=== PATIENT | female | born 1945 | race Caucasian/White ===

== ENCOUNTER → 2017-08-29 | Day surgery (SDC) | payer MEDICARE, BC ==
[2017-08-23 14:02] LABS: BASOPHILS # (AUTO) 0.1 (0.0-0.1); BASOPHILS % 0.9 % (0.0-1.0); EOSINOPHILS # (AUTO) 0.2 (0.0-0.4); EOSINOPHILS % 1.7 % (0.0-6.0); HEMATOCRIT 37.4 % (34.2-44.1); HEMOGLOBIN 11.3 g/dL (12.0-16.0); LYMPHOCYTES # (AUTO) 3.8 (1.0-3.2); LYMPHOCYTES % 39.3 % (18.0-39.1); MEAN CORPUSCULAR HEMOGLOBIN 23.2 pg (28-32); MEAN CORPUSCULAR HGB CONC 30.2 g/dL (31-35); MEAN CORPUSCULAR VOLUME 76.8 fL (81-99); MONOCYTES # (AUTO) 0.5 (0.2-0.8); MONOCYTES % 5.6 % (4.4-11.3); NEUTROPHILS % 52.2 % (38.7-80.0); PLATELET COUNT 268 x10e3/uL (140-360); RED BLOOD COUNT 4.87 x10e6/uL (3.6-5.1); RED CELL DISTRIBUTION WIDTH 18.8 % (11.7-14.4)
[~2017-08-29] MED LIST: CRESTOR10 MG PO; FENTANYL CITRATE/PF 100MCG/2 ML INJ ONE; HYOSCYAMINE PO; HYOSCYAMINE SULFATE 0.5 MG/ML AMP ONE; LEXAPRO10 MG PO; METFORMIN HCL500 MG PO; MIDAZOLAM HCL 2 MG/2 ML VIAL ONE; NEXIUM PO; NORCO 10-325 T1 EACH PO; PANTOPRAZOLE PO; PROPOFOL IV EMULSION 10 MG/ML 50 ML VIAL ONE; TIZANIDINE HCL4 M1 PO; TRAZODONE HCL50 MG PO; Z.0.CYMBALTA60 MG PO; Z.0.GLIMEPIRIDE1 MG PO; Z.0.LORAZEPAM1 MG PO; Z.0.ZOLPIDEM TARTRA1 PO; ZOFRAN PO; ZOLOFT50 MG PO; plavix
--- OUTSIDE RECORDS SUMMARY | 2017-08-29 06:01 | XMS REPORT ---
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 Allergies, Adverse Reactions, Alerts This patient has no known allergies or adverse reactions. Medications This patient has no known medications. Results Test Description Test Time Test Comments Text Results Atomic Results Result Comments MAMMOGRAPHY DIGITAL DX UNI LT [place] [address] Patient Name: KARLA VANN MR #: [id number] : 1945 Age/Sex: 72/F Req #: [id number] Adm Physician: Ordered by: CESAR SMALLWOOD MD Report #: [id number] Location: MAMMO Room/Bed: Procedure: [id number] MG/MAMMOGRAPHY DIGITAL DX UNI LT Exam Date: 03/27/17 Exam Time: 0943 REPORT STATUS: Signed # [id number] - MGDXLT #UNILATERAL LEFT DIGITAL DIAGNOSTIC MAMMOGRAM WITH SPOT COMPRESSION: 03/27/2017 Comparison is made to exams dated: 02/19/2017 mammogram, 02/09/2014 ultrasound, 02/09/2014 mammogram and 09/18/2012 mammogram - [facility]. Current study contains 3 films. The tissue of the left breast is predominantly fatty. Small nodule in question in the upper outer aspect of the left breast persists with focal spot compression. Additional evaluation with focused ultrasound is suggested. IMPRESSION: INCOMPLETE: NEEDS ADDITIONAL IMAGING EVALUATION Small nodule in the upper outer aspect of the left breast. Focused ultrasound is recommended and will be performed today. Matheus Saavedra Jr., D.O. cw/:03/27/2017 13:42:21 Director Of Materials: Reina GARCIA(R)(M) , [facility] Mammogram BI-RADS: 0 Indeterminate Dictated By: MATHEUS SAAVEDRA DO 1342 Transcribed By: VANESSA on 03/27/17 1342 COPY TO: CESAR SMALLWOOD MD US BREAST LIMITED LEFT [place] [address] Patient Name: KARLA VANN MR #: [id number] : 1945 Age/Sex: 72/F Req #: [id number] Adm Physician: Ordered by: CESAR SMALLWOOD MD Report #: [id number] Location: MAMMO Room/Bed: Procedure: [id number] US/US BREAST LIMITED LEFT Exam Date: Exam Time: REPORT STATUS: Signed #[id number] - USBRELIMLT ULTRASOUND OF THE LEFT BREAST : 03/27/2017 Comparison is made to exams dated: 03/27/2017 mammogram and 02/19/2017 mammogram - [facility]. Color flow and real-time ultrasound were performed on the left breast with scanning from 12 o'clock to 4 o'clock. -At 12 o 'clock 2 cm from the nipple there is a 4 mm benign cyst -At 1 o'clock 5 cm from the nipple there is a 3 mm benign cyst -At 2 o'clock 3 cm from the nipple there is a 7 mm benign cyst IMPRESSION: BENIGN Multiple benign simple cysts. There is no sonographic evidence of malignancy. A 1 year screening mammogram is recommended. Matheus Saavedra Jr., D.O. cw/:03/27/2017 14:11:55 Director Of Materials: LEIF GAONA RT, [facility] letter sent: Normal Exam Ultrasound BI-RADS: 2 Benign Dictated By: MATHEUS SAAVEDRA DO 141 Transcribed By: VANESSA on 03/27/17 141 COPY TO: CESAR SMALLWOOD MD MAMMOGRAPHY DIGITAL SCR BILAT [place] [address] Patient Name: KARLA VANN MR #: [id number] : 1945 Age/Sex: 72/F Req #: [id number] [facility] Physician: Ordered by: CESAR SMALLWOOD MD Report #: [id number] Location: MAMMO Room/Bed: Procedure: [id number] MG/MAMMOGRAPHY DIGITAL SCR BILAT Exam Date: 02/19/17 Exam Time: 1306 REPORT STATUS: Signed # [id number] - MGSCRBIL #BILATERAL DIGITAL SCREENING MAMMOGRAM WITH CAD: 02/19 CLINICAL: Routine screening. Comparison is made to exams dated: 02/09/2014 mammogram, 09/18/2012 mammogram and 07/18/2011 mammogram - [facility]. Current study contains 6 films. The tissue of both breasts is predominantly fatty. Current study was also evaluated with a Computer Aided Detection (CAD) system. There is a possible oval mass in the left breast at 1 o'clock anterior depth. This density appears new compared to prior studies and is highlighted by CAD analysis on the CC view. There are scattered calcifications in both breasts. No other significant masses, calcifications, or other findings are seen in either breast. IMPRESSION: INCOMPLETE: NEEDS ADDITIONAL IMAGING EVALUATION The possible oval mass in the left breast is indeterminate. Additional views with possible ultrasound are recommended. The patient will be contacted by the Mammography Department to schedule this appointment. Matheus Saavedra Jr., D.O. cw/:03/06/2017 07:37:08 Director Of Materials: Reina GARCIA(Yogesh)(Vicky), [facility] letter sent: Additional Imaging Needed Mammogram BI-RADS: 0 Indeterminate Dictated By: MATHEUS SAAVEDRA DO 6 Transcribed By: VANESSA on 03/06/17736 COPY TO: CESAR SMALLWOOD MD
--- NOTE | 2017-08-29 10:05 | Operative Report ---
DATE OF PROCEDURE: August 29, 2017 REFERRING PHYSICIAN: Dr. Smallwood PROCEDURES PERFORMED 1. Esophagogastroduodenoscopy with biopsies and pyloric channel dilatation. 2. Colonoscopy note. INDICATIONS FOR EGD: Dyspepsia. INDICATIONS FOR COLONOSCOPY: Colorectal cancer screening. Personal history of colon polyps. MEDICATION: Patient was done under MAC. Please see anesthesiologist's note. PROCEDURE: With the patient in the left lateral decubitus position, the flexible fiberoptic Olympus gastroscope was introduced into the esophagus under direct visualization without any difficulty. There was some patchy erythema noted in the distal esophagus. The scope was then advanced with ease into the stomach, traversing a small sliding hiatal hernia. Mucosa overlying the antrum and the body revealed some patchy erythema and mild to moderate edema, and biopsies were obtained and sent to stain for H. pylori. The pyloric channel was strictured and could not be traversed with the scope. It was then dilated to a size 20 mm per TTS balloon dilators. The pylorus was then traversed with ease, and the scope was advanced all the way to the 2nd portion of the duodenum. The scope was then withdrawn slowly. Mucosa overlying the proximal 2nd portion and the duodenal bulb appeared to be within normal limits. The scope was then withdrawn back into the stomach and retroflexed. Mucosa overlying the fundus and cardia appeared to be within normal limits. The scope was then straightened out. The stomach was decompressed. The scope was subsequently withdrawn. Patient tolerated the procedure well. IMPRESSION 1. Mild distal esophagitis. 2. Small sliding hiatal hernia. 3. Gastritis, biopsied. Biopsies sent to stain for H. pylori. 4. Pyloric channel stricture dilated to size 20 mm per TTS balloon dilators. PLAN: Follow up histology. Initiate Protonix 40 mg 1 p.o. q.a.m. a.c. The patient was then turned around. After adequate lubrication of the anal canal, a flexible fiberoptic Olympus colonoscope was inserted into the rectum with ease and advanced all the way to the cecum. Prep overall was suboptimal with retained stools in the colon. The scope was then withdrawn slowly. Whatever was visualized of the mucosa overlying the cecum, ascending, transverse, descending, sigmoid and rectum grossly appeared to be within normal limits. There was some diverticular disease noted in the descending and sigmoid colon. The scope was then retroflexed into the distal rectum, and small internal hemorrhoids were noted along with some hypertrophic anal papillae. The scope was then straightened out. It was subsequently withdrawn. Patient tolerated the procedure well. IMPRESSION 1. Suboptimal prep. 2. Diverticulosis. 3. Internal hemorrhoids, none actively bleeding. 4. Hypertrophic anal papillae. PLAN: Initiate high-fiber, low-fat diet. Initiate high-fiber supplement. Patient will need a followup colonoscopy in 3 years. Job#: [id number] cc:CESAR SMALLWOOD M.D.
== END | disposition home or self-care (01) ==
LOC: OR 05:58
PROVIDERS: ATTEND Internal Medicine Gastroenterology
DX: Z12.11 Encounter for screening for malignant neoplasm of colon (principal); K29.70 Gastritis, unspecified, without bleeding; K31.1 Adult hypertrophic pyloric stenosis; K20.9 Esophagitis, unspecified; K21.9 Gastro-esophageal reflux disease without esophagitis; K44.9 Diaphragmatic hernia without obstruction or gangrene; K57.30 Diverticulosis of large intestine without perforation or abscess without bleeding; K64.8 Other hemorrhoids; K62.89 Other specified diseases of anus and rectum; E11.9 Type 2 diabetes mellitus without complications; R03.0 Elevated blood-pressure reading, without diagnosis of hypertension; F32.9 Major depressive disorder, single episode, unspecified; F41.9 Anxiety disorder, unspecified; Z01.810 Encounter for preprocedural cardiovascular examination; Z01.812 Encounter for preprocedural laboratory examination; Z68.27 Body mass index [BMI] 27.0-27.9, adult; Z96.659 Presence of unspecified artificial knee joint; Z95.2 Presence of prosthetic heart valve
CPT/HCPCS: 43239; 43245; G0121; 36415; 43450; 45378; 82948; 85025; 88305; 88312; 93005; J1980; J2250

== ENCOUNTER → 2018-08-06 | Outpatient (CLI) | payer MEDICARE, BC ==
[~2018-08-06] MED LIST changes: +DICYCLOMINE HCL10 MG PO; -FENTANYL CITRATE/PF 100MCG/2 ML INJ ONE; +GLIMEPIRIDE2 MG PO; +HEMOCYTE PLUS1 EACH PO; -HYOSCYAMINE SULFATE 0.5 MG/ML AMP ONE; +METOPROLOL SUCC25 MG PO; -MIDAZOLAM HCL 2 MG/2 ML VIAL ONE; +PANTOPRAZOLE SO40 MG PO; -PROPOFOL IV EMULSION 10 MG/ML 50 ML VIAL ONE; +TRADJENTA5 MG PO
[2018-08-06 12:28] LABS: BASOPHILS % 0.3 % (0.0-1.0); HEMATOCRIT 30.8 % (34.2-44.1); HEMOGLOBIN 9.2 g/dL (12.0-16.0); LYMPHOCYTES # (AUTO) 1.9 (1.0-3.2); LYMPHOCYTES % 19.8 % (18.0-39.1); MEAN CORPUSCULAR HEMOGLOBIN 22.9 pg (28-32); MEAN CORPUSCULAR HGB CONC 29.9 g/dL (31-35); MEAN CORPUSCULAR VOLUME 76.6 fL (81-99); MONOCYTES # (AUTO) 0.4 (0.2-0.8); NEUTROPHILS # (AUTO) 7.3 (2.1-6.9); NEUTROPHILS % 75.2 % (38.7-80.0); PLATELET COUNT 199 x10e3/uL (140-360); RED BLOOD COUNT 4.02 x10e6/uL (3.6-5.1); RED CELL DISTRIBUTION WIDTH 20.1 % (11.7-14.4)
[2018-08-06 12:43] LABS: INR 0.88; PROTHROMBIN TIME 12.4 seconds (11.9-14.5)
[2018-08-06 13:11] LABS: FERRITIN 28.41 ng/mL (4.63-204.00)
--- OUTSIDE RECORDS SUMMARY | 2018-08-12 10:16 | XMS REPORT | Summary of Care ---
Author Author [facility] Organization [facility] Address Unknown Phone Unavailable Encounter MANDI Juarez(DEBBY) [id number] Date(s): 12/29/14 - 12/29/14 [facility] [address] [facility], [address] Discharge Disposition: Home Attending Physician: Ivet Newman MD Referring Physician: Ivet Newman MD Vital Signs Most recent to 1 oldest [Reference Range]: Height 162.56 cm (12/29/14 3:03 PM) Most recent to 1 oldest [Reference Range]: Temperature Oral 98.1 DegF [96.4-99.1 DegF] (12/29/14 3:03 PM) Most recent to 1 oldest [Reference Range]: Blood Pressure 131/78 mmHg [90-140/60-90 mmHg] (12/29/14 3:03 PM) Most recent to 1 oldest [Reference Range]: Respiratory Rate 18 BRMIN [14-20 BRMIN] (12/29/14 3:03 PM) Most recent to 1 oldest [Reference Range]: Peripheral Pulse 98 bpm Rate [60-100 bpm] (12/29/14 3:03 PM) Most recent to 1 oldest [Reference Range]: Weight 81 kg (12/29/14 3:03 PM) Most recent to 1 oldest [Reference Range]: Body Mass Index 30.65 m2 (12/29/14 3:03 PM) Problem List Condition Effective Dates Status Health Status Informant Angina(Confirmed) Resolved Aortic Active stenosis(Confirmed) CHF - Congestive Active heart failure(Confirmed) DM (diabetes Active mellitus)(Confirmed) Pulmonary Active HTN(Confirmed) Allergies, Adverse Reactions, Alerts Substance Reaction Severity Status NKDA Active Medications No Known Medications Results No data available for this section Immunizations No data available for this section Procedures Procedure Date Related Diagnosis Body Site Percutaneous transfemoral insertion of aortic 12/05/13 valve using fluoroscopic guidance Appendectomy Bilateral replacement of knee joints Cholecystectomy Sling procedure of bladder neck Vaginal hysterectomy Social History Social History Type Response Smoking Status Never smoker; Exposure to Tobacco Smoke None; Cigarette Smoking Last 365 Days No; Reg Smoking Cessation Counseling No Assessment and Plan No data available for this section
--- OUTSIDE RECORDS SUMMARY | 2018-08-12 10:16 | XMS REPORT | Summary of Care ---
Author Organization Unknown Address Unknown Phone Unavailable Encounter HQ Larry(DEBBY) [id number] Date(s): 12/29/13 - 12/29/13 [facility] Outpatient Imaging [address] Discharge Disposition: Home Physician Attending: Ivet Newman MD Reason for Visit 424.1 - AORTIC VALVE DI Problem List Condition Effective Dates Status Health Status Informant Angina(Confirmed) Resolved Aortic Active stenosis(Confirmed) CHF - Congestive Active heart failure(Confirmed) DM (diabetes Active mellitus)(Confirmed) Pulmonary Active HTN(Confirmed) Allergies, Adverse Reactions, Alerts Substance Reaction Severity Status NKDA Active Medications No data available for this section Medications Administered During Your Visit No data available for this section Immunizations No data available for this section Social History Social History Type Response Smoking Status Never smoker, Exposure to Tobacco Smoke None, Cigarette Smoking Last 365 Days No, Reg Smoking Cessation Counseling No
--- OUTSIDE RECORDS SUMMARY | 2018-08-12 10:16 | XMS REPORT | Summary of Care ---
Author Organization Unknown Address Unknown Phone Unavailable Encounter HQ Larry(DEBBY) [id number] Date(s): 12/04/13 - 12/04/13 [facility] Outpatient Imaging [address] Discharge Disposition: Home Physician Attending: Fernando Santos MD Reason for Visit 786.05 - SHORTNESS OF BR Problem List Condition Effective Dates Status Health [...]
--- OUTSIDE RECORDS SUMMARY | 2018-08-12 10:16 | XMS REPORT | Summary of Care ---
Author Organization Unknown Address Unknown Phone Unavailable Encounter HQ Larry(DEBBY) [id number] Date(s): 12/29/13 - 12/29/[address] Discharge Disposition: Home Physician Attending: Ivet Newman MD Physician_Referring: Ivet Newman MD Reason for Visit FOLLWO UP Vital Signs Most recent to 1 oldest [Reference Range]: Height 162.56 cm (12/29/13 2:24 PM) Temperature Oral 97.3 DegF [96.4-99.1 DegF] (12/29/13 2:24 PM) Systolic Blood 89 mmHg Pressure [90-140 *LOW* mmHg] (12/29/13 2:24 PM) Diastolic Blood 59 mmHg Pressure [60-90 *LOW* mmHg] (12/29/13 2:24 PM) Respiratory Rate 16 BRMIN [14-20 BRMIN] (12/29/13 2:24 PM) Peripheral Pulse 77 bpm Rate [60-100 bpm] (12/29/13 2:24 PM) Weight 75.455 kg (12/29/13 2:24 PM) Body Mass Index 28.55 m2 (12/29/13 2:24 PM) Problem List Condition Effective Dates Status [...]
--- OUTSIDE RECORDS SUMMARY | 2018-08-12 10:16 | XMS REPORT | Summary of Care ---
Author Organization Unknown Address Unknown Phone Unavailable Encounter MANDI Juarez(DEBBY) [id number] Date(s): 06/08/14 - 06/08/[address] Discharge Disposition: Home Physician Attending: Ivet Newman MD Physician_Referring: Ivet Newman MD Reason for Visit 6 MONTH FOLLOW UP Vital Signs Most recent to 1 oldest [Reference Range]: Height 162.56 cm (06/08/14 1:37 PM) Temperature Oral 98 DegF [96.4-99.1 DegF] (06/08/14 1:37 PM) Systolic Blood 159 mmHg Pressure [90-140 *HI* mmHg] (06/08/14 1:37 PM) Diastolic Blood 89 mmHg Pressure [60-90 (06/08/14 1:37 PM) mmHg] Respiratory Rate 16 BRMIN [14-20 BRMIN] (06/08/14 1:37 PM) Peripheral Pulse 70 bpm Rate [60-100 bpm] (06/08/14 1:37 PM) Weight 75.142 kg (06/08/14 1:37 PM) Body Mass Index 28.44 m2 (06/08/14 1:37 PM) Problem List Condition Effective Dates Status Health Status Informant Angina(Confirmed) Resolved Aortic Active stenosis(Confirmed) CHF - Congestive Active heart failure(Confirmed) DM (diabetes Active mellitus)(Confirmed) Pulmonary Active HTN(Confirmed) Allergies, Adverse Reactions, Alerts Substance Reaction Severity Status NKDA Active Medications Butrans System 15 mcg/hr transdermal film, extended release 1 patch, 0 Refill(s) Start Date: 06/08/14 Status: Ordered Crestor 10 mg oral tablet 10 mg=1 tab, PO, Bedtime, # 90 tab, 0 Refill(s) Start Date: 06/08/14 Status: Ordered escitalopram 10 mg oral tablet 10 mg=1 tab, PO, Daily, # 30 tab, 0 Refill(s) Start Date: 06/08/14 Status: Ordered metoclopramide 5 mg oral tablet 5 mg=1 tab, 0 Refill(s) Start Date: 06/08/14 Status: Ordered pantoprazole 40 mg oral enteric coated tablet 40 mg=1 tab, PO, Daily, # 30 tab, 0 Refill(s) Start Date: 06/08/14 Status: Ordered tizanidine 0 Refill(s) Start Date: 06/08/14 Status: Ordered Medications Administered During Your Visit No data available for this section Immunizations No data available for this section Social History Social History Type Response Smoking Status Never smoker, Exposure to Tobacco Smoke None, Cigarette Smoking Last 365 Days No, Reg Smoking Cessation Counseling No
--- OUTSIDE RECORDS SUMMARY | 2018-08-12 10:16 | XMS REPORT | Continuity of Care Document ---
Author Author Sadi kasper Organization Interface Address Unknown Phone Unavailable Problems Problem Status Onset Date Classification Date Reported Comments Source FOLLOW UP FROM DR MORALES Active 07/19/2018 [facility] 1 YEAR FOLLOW UP Active 12/20/2017 [facility] FOLLOW UP Active 01/05/2017 [facility] 424.1 - AORTIC VALVE DI Active 12/29/2014 RASHAD Kasper 6 MONTH FOLLOW UP Active 12/29/2013 [facility] FOLLWO UP Active 12/26/2013 [facility] HOSPITAL FOLLOW UP Active 12/08/2013 [facility] AORTIC STENOSIS, SOB Active 11/27/2013 [facility] PRE ADMIT/GEN/TAVR CASE/3D DIOR/DX: AORTI Active 11/27/2013 [facility] AVD, DM, PULMONARY HTN, CHEST PAIN*INCLU Active 10/07/2013 [facility] TAVR CONSULT Active 10/06/2013 [facility] AVB,SOB,CLP,PULM HTN Active 09/05/2013 [facility] INTIAL CONSULT Active 09/03/2013 [facility] Angina [facility]olved [facility]26[facility] A[facility] - Congestive heart failure Active [facility]/26[facility] DM (<span ID="[id number]">Confirmed</span>) Active Problem [facility]/26[facility] Pul[facility]N [facility]/26[facility] Polymyalgia rheumatica Active Problem 07/27/2018 Reji Landeros Osteoarthritis Active Diagnosis 07/27/2018 Reji Landeros Vitamin D deficiency Active Problem 07/27/2018 Reji Landeros Age-related osteoporosis with current pathological fracture, initial encounter Active Problem 02/13/2018 Reji Landeros Age related osteoporosis Active Problem 07/27/2018 Reji Landeros Fall from chair, initial encounter Active Problem 07/27/2018 Reji Landeros Other specified arthritis, multiple sites Active Problem 07/27/2018 Reji Landeros Chronic prescription opiate use Active Diagnosis 07/27/2018 Reji Landeros Special screening for osteoporosis Active Problem 07/27/2018 Reji Landeros Acute pain of left shoulder Active Diagnosis 11/07/2016 Reji Landeros Flu vaccine need Active Diagnosis 03/30/2017 Reji Landeros Primary insomnia Active Diagnosis 07/27/2018 Reji Landeros Pain of left leg Active Diagnosis 12/01/2017 Reji Landeros Pain in right leg Active Diagnosis 12/01/2017 Reji Landeros Other group home drug therapy Active Diagnosis 02/13/2018 Reji Landeros AORTIC VALVE DISORDER Active [facility] SHORTNESS OF BREATH Active [facility] CHF NOS Active [facility] ROUTINE MEDICAL EXAM Active [facility] CHEST PAIN NOS Active [facility] ENCNTR FOR GENERAL ADULT MEDICAL EXAM W/ Active [facility] Medications Medication Details Route Status Patient Instructions Ordering Provider Order Date Source Hydrocodone-Acetaminophen 1 tablet as needed Orally Active 10- 325 MG Orally every 6 hrs [place] 07/25/2018 Reji Landeros Temazepam 1 capsule at bedtime as needed Orally Active 15 MG Orally qhs prn for sleep [place] 07/25/2018 Reji Landeros PredniSONE 1 tablet as needed Orally Active 5 MG Orally Once a day [place] 07/25/2018 Reji Landeros Lyrica 1 capsule Orally Active 75 MG Orally Once a day [place] 07/25/2018 Reji Landeros 24 HR Metoprolol Tartrate 25 MG Extended Release Tablet [Toprol] 25 mg=1 tab, PO, Daily, # 30 tab, 6 Refill(s), Pharmacy: [facility] [address] Active 07/23/2018 [facility] Tizanidine HCl 1 tablet as needed Orally Active 4 MG Orally bid [place] 07/01/2018 Reji Landeros Lyrica 1 capsule Orally Active 75 MG Orally Once a day [place] 04/25/2018 Reji Landeros Temazepam 1 capsule at bedtime as needed Orally Active 15 MG Orally qhs prn for sleep [place] 02/22/2018 Reji Landeros Tizanidine HCl 1 tablet as needed Orally Active 4 MG Orally bid [place] 12/23/2017 Reji Landeros PredniSONE 1 tablet as needed Orally Active 5 MG Orally Once a day [place] 12/23/2017 Reji Landeros Tizanidine HCl 1 tablet as needed Orally Active 4 MG Orally bid [place] 12/20/2017 Reji Landeros Lyrica 1 capsule Orally Active 75 MG Orally Once a day [place] 12/20/2017 Reji Landeros Hydrocodone-Acetaminophen 1 tablet as needed Orally Active 10- 325 MG Orally every 6 hrs [place] 11/21/2017 Reji Landeros Lyrica 1 capsule Orally Active 50 MG Orally QHS [place] 11/20/2017 Reji Landeros Vitamin D (Ergocalciferol) 1 capsule Orally Active 08567 UNIT Orally once a week [place] 10/22/2017 Re[facility] L[facility]os Tizanidine HCl 1 tablet as needed Orally Active 4 MG Orally bid [place] 10/21/2017 Reji Landeros Hydrocodone-Acetaminophen 1 tablet as needed Orally Active 10- 325 MG Orally every 6 hrs [place] 10/21/2017 Reji Landeros Medrol Dose Eric as directed Orally Active 4mg Orally once a day [place] 06/25/2017 Reji Landeros Vitamin D (Ergocalciferol) 1 capsule Orally Active 36135 UNIT Orally once a week [place] 06/08/2017 Reji Landeros Hydrocodone-Acetaminophen 1 tablet as needed Orally Active 10- 325 MG Orally every 6 hrs [place] 05/25/2017 Reji Landeros Prolia as directed Subcutaneous Active 60 MG/ML Subcutaneous every 6 months [place] 03/26/2017 Reji Landeros Vitamin D (Ergocalciferol) 1 capsule Orally Active 47621 UNIT Orally once a week [place] 02/08/2017 Reji Landeros escitalopram 20 mg oral tablet 20 mg=1 tab, PO, Daily, 0 Refill(s) Active 12/28/2015 [facility] tizanidine 0 Refill(s) Active 06/08/2014 [facility] escitalopram 10 mg oral tablet 10 mg=1 tab, PO, Daily, # 30 tab, 0 Refill(s) Active 06/08/2014 [facility] pantoprazole 40 mg oral enteric coated tablet 40 mg=1 tab, PO, Daily, # 30 tab, 0 Refill(s) Active 06/08/2014 [facility] Metoclopramide 5 MG Oral Tablet 5 mg=1 tab, 0 Refill(s) Active 06/08/2014 [facility] Rosuvastatin calcium 10 MG Oral Tablet [Crestor] 10 mg=1 tab, PO, Bedtime, # 90 tab, 0 Refill(s) Active 06/08/2014 [facility] 168 HR Buprenorphine 0.015 MG/HR Transdermal Patch [BuTrans] 1 patch, 0 Refill(s) Active 06/08/2014 [facility] LORazepam 1 mg oral tablet 1 mg=1 tab, PO, BID, Anxiety, PRN, # 20 tab, 0 Refill(s)Special Instructions: PRN Active 12/15/2013 [facility] Zolpidem tartrate 5 MG Oral Tablet [Ambien] 5 mg=1 tab, PO, Bedtime, for sleep, PRN sleep, 0 Refill(s)Special Instructions: PRN sleep Active 12/15/2013 [facility] lisinopril 5 mg oral tablet 5 mg=1 tab, PO, Daily, # 30 tab, 3 Refill(s) Active 12/07/2013 [facility] clopidogrel 75 mg oral tablet 75 mg=1 tab, PO, Daily, # 30 tab, 6 Refill(s) Active 12/07/2013 [facility] Aspirin 81 MG Enteric Coated Tablet 81 mg=1 tab, PO, Daily, # 100 tab, 3 Refill(s) Active 12/07/2013 [facility] tramadol hydrochloride 50 MG Oral Tablet 50 mg=1 tab, PO, Q6H, as needed for pain, # 30 tab, 0 Refill(s) Active 12/07/2013 [facility] Lisinopril 5 mg, 1 tab, Route: PO, Drug form: TAB, Daily, Dosing Weight 80.455, kg, Start date: 12/07/13 9:00:00, Duration: 30 day, Stop date: 01/05/14 9:00:00Notes: (Same as: Prinivil, Zestril) Inactive 12/07/2013 [facility] clopidogrel 75 mg, 1 tab, Route: PO, Drug form: TAB, Daily, Dosing Weight 80.455, kg, Start date: 12/06/13 9:00:00, Duration: 30 day, Stop date: 01/04/14 9:00:00Notes: (Same As: Plavix) No Longer Active 12/06/2013 [facility] pantoprazole 40 mg, 1 tab, Route: PO, Drug form: ECTAB, Daily, Dosing Weight 80.455, kg, Start date: 12/06/13 9:00:00, Duration: 30 day, Stop date: 01/04/14 9:00:00Notes: Tablet should not be chewed or crushed. ( Same as: Protonix) No Longer Active 12/06/2013 [facility] Aspirin 81 MG Enteric Coated Tablet 81 mg, 1 tab, Route: PO, Drug form: ECTAB, Daily, Dosing Weight 80.455, kg, Start date: 12/06/13 9:00:00, Duration: 30 day, Stop date: 01/04/14 9:00:00Notes: Do not crush or chew. (Same As: Ecotrin) No Longer Active 12/06/2013 [facility] Zoloft 100 mg, 1 tab, Route: PO, Drug form: TAB, Daily, Dosing Weight 80.455, kg, Start date: 12/06/13 9:00:00, Stop date: 01/03/14 21:00:00Notes: (Same as: Zoloft) No Longer Active 12/06/2013 [facility] Acetaminophen 325 MG Oral Tablet 650 mg, 2 tab, Route: PO, Drug form: TAB, Q4H, Dosing Weight 80.455, kg, PRN as needed for pain, Start date: 12/06/13 5:14:00, Duration: 30 day, Stop date: 01/05/14 5:13:00Notes: Do not exceed 4 gm/day. (Same as: Tylenol) No Longer Active 12/06/2013 [facility] Acetaminophen 10 MG/ML Injectable Solution 1,000 mg, 100 mL, Route: IV, Drug form: INJ, ONCE, Dosing Weight 80.455, kg, PRN Pain, For > or=50 kg, Start date: 12/05/13 22:32:00Notes: Infuse over 15 minutes Do not exceed 4gm/day of acetaminophen Inactive 12/06/2013 [facility] heparin, porcine 5,000 unit, Route: SUB-Q, Q12H, Dosing Weight 80.455, kg, Start date: 12/05/13 21:00:00, Duration: 30 day, Stop date: 01/04/14 9:00:00 Inactive 12/06/2013 [facility] Zofran 4 mg, 2 mL, Route: IV, Drug form: INJ, Q4H, Dosing Weight 80.455, kg, PRN Nausea, Start date: 12/05/13 20:10:00, Duration: 30 day, Stop date: 01/04/14 20:09:00Notes: (Same as: Zofran) No Longer Active 12/06/2013 [facility] Zofran 4 mg, 2 mL, Route: IV, Drug form: INJ, Q8H, Dosing Weight 80.455, kg, PRN Nausea, Start date: 12/05/13 17:53:00, Duration: 30 day, Stop date: 01/04/14 17:52:00Notes: (Same as: Zofran) Inactive 12/05/2013 [facility] Fentanyl 25 microgram, Route: IV, QID, Dosing Weight 80.455, kg, Start date: 12/05/13 17:00:00, Duration: 30 day, Stop date: 01/04/14 13:00:00 Inactive 12/05/2013 [facility] tramadol hydrochloride 50 MG Oral Tablet 50 mg, 1 tab, Route: PO, Drug form: TAB, Q6H, Dosing Weight 80.455, kg, PRN as needed for pain, Start date: 12/05/13 16:52:00, Duration: 30 day, Stop date: 01/04/14 16:51:00Notes: Not to exceed 400mg/day. (Same As: Ultram) No Longer Active 12/05/2013 [facility] Potassium Chloride 20 mEq, 15 mL, Route: NJ, Drug form: LIQ, PRN, Dosing Weight 80.455, kg, PRN Abnormal Lab Result, Start date: 12/05/13 13:29:00, Duration: 30 day, Stop date: 01/04/14 13:28:00, FOR ICU USE ONLYSpecial Instructions: FOR ICU USE ONLYNotes: (Same as: Potassium Chloride) No Longer Active 12/05/2013 [facility] Sodium Phosphate, Monobasic 30 mmol, 10 mL, Route: IVPB, PRN, Dosing Weight 80.455, kg, PRN Abnormal Lab Result, Start date: 12/05/13 13:29:00, Duration: 30 day, Stop date: 01/04/14 13:28:00, FOR ICU USE ONLYSpecial Instructions: FOR ICU USE ONLY No Longer Active 12/05/2013 [facility] Calcium Carbonate 500 MG Chewable Tablet 500 mg, 1 tab, Route: PO, Drug form: CHEWTAB, PRN, Dosing Weight 80.455, kg, PRN Abnormal Lab Result, FOR ICU USE ONLY, Start date: 12/05/13 13:29:00, Duration: 30 day, Stop date: 01/04/14 13:28:00Notes: (Same As: Tums) Calcium Carbonate 500 iv=273 mg elemental calcium Dose= mg calcium carbonate ( mg elemental calcium) No Longer Active 12/05/2013 [facility] Magnesium Oxide 800 mg, 2 tab, Route: PO, Drug form: TAB, PRN, Dosing Weight 80.455, kg, PRN Abnormal Lab Result, FOR ICU USE ONLY, Start date: 12/05/13 13:29:00, Duration: 30 day, Stop date: 01/04/14 13:28:00Notes: (Same as: Mag-Ox 400) Magnesium oxide [id number] elemental magnesium Dose=____mg magnesium oxide (___mg elemental magnesium) No Longer Active 12/05/2013 [facility] Magnesium Sulfate 2 gm, 50 mL, Route: IVPB, Drug form: INJ, PRN, Dosing Weight 80.455, kg, PRN Abnormal Lab Result, Start date: 12/05/13 13:29:00, Duration: 30 day, Stop date: 01/04/14 13:28:00, FOR ICU USE ONLYSpecial Instructions: FOR ICU USE ONLY No Longer Active 12/05/2013 [facility] Calcium Gluconate 1 gm, 10 mL, Route: IVPB, PRN, Dosing Weight 80.455, kg, PRN Abnormal Lab Result, Start date: 12/05/13 13:29:00, Duration: 30 day, Stop date: 01/04/14 13:28:00, FOR ICU USE ONLYSpecial Instructions: FOR ICU USE ONLY No Longer Active 12/05/2013 [facility] Phosphorus / Potassium 30 mmol, 10 mL, Route: IVPB, PRN, Dosing Weight 80.455, kg, PRN Abnormal Lab Result, Start date: 12/05/13 13:29:00, Duration: 30 day, Stop date: 01/04/14 13:28:00, FOR ICU USE ONLYSpecial Instructions: FOR ICU USE ONLYNotes: (Same as: K Phosphate.) 1 mMol phoshate has 1.47 mEq potassium Infuse over 4 hours No Longer Active 12/05/2013 [facility] Neutra-Phos 2 pkt, Route: PO, Drug Form: PDR/REC, Dosing Weight 80.455, kg, PRN, PRN Abnormal Lab Result, FOR ICU USE ONLY, Start date: 12/05/13 13:29:00, Duration: 30 day, Stop date: 01/04/14 13:28:00Notes: (Same as: Neutra-Phos) Each 1.25 gm pkt has 250mg phosphorous. Mix w/2.5oz water and stir. No Longer Active 12/05/2013 [facility] Insulin, Regular, Pork 5 unit, 0.05 mL, Route: SUB-Q, Drug form: SOLN, TID-Before Meals, Dosing Weight 80.455, kg, PRN Blood Glucose Results, Start date: 12/05/13 13:29:00, Duration: 30 day, Stop date: 01/04/14 13:28:00Notes: (Same as: Humulin R) Roll in palms of hands gently; Do not shake vigorously. "single patient use only" (Restricted to patients requiring a dose > 60 units) Stable for 28 days at room temperature Expires in days from Date No Longer Active 12/05/2013 [facility] Calcium Carbonate 500 MG Chewable Tablet 1,000 mg, 2 tab, Route: PO, Drug form: CHEWTAB, PRN, Dosing Weight 80.455, kg, PRN Abnormal Lab Result, FOR ICU USE ONLY, Start date: 12/05/13 13:06:00, Duration: 30 day, Stop date: 01/04/14 13:05:00Notes: (Same As: Tums) Calcium Carbonate 500 jl=378 mg elemental calcium Dose= mg calcium carbonate ( mg elemental calcium) Inactive 12/05/2013 [facility] Phosphorus / Potassium 15 mmol, 5 mL, Route: IVPB, PRN, Dosing Weight 80.455, kg, PRN Abnormal Lab Result, Start date: 12/05/13 13:06:00, Duration: 30 day, Stop date: 01/04/14 13:05:00, FOR ICU USE ONLYSpecial Instructions: FOR ICU USE ONLYNotes: (Same as: K Phosphate.) 1 mMol phoshate has 1.47 mEq potassium Infuse over 4 hours Inactive 12/05/2013 [facility] Sodium Phosphate, Monobasic 30 mmol, 10 mL, Route: IVPB, PRN, Dosing Weight 80.455, kg, PRN Abnormal Lab Result, Start date: 12/05/13 13:06:00, Duration: 30 day, Stop date: 01/04/14 13:05:00, FOR ICU USE ONLYSpecial Instructions: FOR ICU USE ONLY Inactive 12/05/2013 [facility] Potassium Chloride 20 mEq, 100 mL, Route: IVPB, Drug form: INJ, PRN, Dosing Weight 80.455, kg, PRN Abnormal Lab Result, Via central line, Start date: 12/05/13 13:06:00, Duration: 30 day, Stop date: 01/04/14 13:05:00, F OR ICU USE ONLYSpecial Instructions: FOR ICU USE ONLYNotes: (Same as: KCL) Infuse no faster than 10 mEq/hr if given peripherally. Inactive 12/05/2013 [facility] Neutra-Phos 2 pkt, Route: PO, Drug Form: PDR/REC, Dosing Weight 80.455, kg, PRN, PRN Abnormal Lab Result, FOR ICU USE ONLY, Start date: 12/05/13 13:06:00, Duration: 30 day, Stop date: 01/04/14 13:05:00Notes: (Same as: Neutra-Phos) Each 1.25 gm pkt has 250mg phosphorous. Mix w/2.5oz water and stir. Inactive 12/05/2013 [facility] Magnesium Sulfate 2 gm, 50 mL, Route: IVPB, Drug form: INJ, PRN, Dosing Weight 80.455, kg, PRN Abnormal Lab Result, Start date: 12/05/13 13:06:00, Duration: 30 day, Stop date: 01/04/14 13:05:00, FOR ICU USE ONLYSpecial Instructions: FOR ICU USE ONLY Inactive 12/05/2013 [facility] Magnesium Oxide 800 mg, 2 tab, Route: PO, Drug form: TAB, PRN, Dosing Weight 80.455, kg, PRN Abnormal Lab Result, FOR ICU USE ONLY, Start date: 12/05/13 13:06:00, Duration: 30 day, Stop date: 01/04/14 13:05:00Notes: (Same as: Mag-Ox 400) Magnesium oxide [id number] elemental magnesium Dose=____mg magnesium oxide (___mg elemental magnesium) Inactive 12/05/2013 [facility] Calcium Gluconate 1 gm, 10 mL, Route: IVPB, PRN, Dosing Weight 80.455, kg, PRN Abnormal Lab Result, Start date: 12/05/13 13:06:00, Duration: 30 day, Stop date: 01/04/14 13:05:00, FOR ICU USE ONLYSpecial Instructions: FOR ICU USE ONLY Inactive 12/05/2013 [facility] Hydralazine 10 mg, 0.5 mL, Route: IV, Drug form: INJ, Q6H, Dosing Weight 80.455, kg, PRN Hypertension, Start date: 12/05/13 12:29:00, Duration: 30 day, Stop date: 01/04/14 12:28:00Notes: (Same as: Apresoline) Push over 5 minutes No Longer Active 12/05/2013 [facility] Fentanyl 50 microgram, 1 mL, Route: IV, Drug form: INJ, Q4H, Dosing Weight 80.455, kg, PRN Pain, Start date: 12/05/13 11:50:00, Duration: 30 day, Stop date: 01/04/14 11:49:00Notes: (Same as: Sublimaze) Prese rvative free. No Longer Active 12/05/2013 [facility] Esomeprazole 20 MG Enteric Coated Capsule [Nexium] 20 mg=1 cap, PO, Daily, # 90 cap, 0 Refill(s) Active 12/05/2013 [facility] LORazepam 1 mg oral tablet 1 mg=1 tab, PO, Daily, Anxiety, prn, # 20 tab, 0 Refill(s)Special Instructions: prn Active 09/04/2013 [facility] Zolpidem tartrate 5 MG Oral Tablet [Ambien] 5 mg=1 tab, PO, Bedtime, for sleep, prn, 0 Refill(s)Special Instructions: prn Active 09/04/2013 [facility] Sertraline 100 MG Oral Tablet [Zoloft] 100 mg=1 tab, PO, Daily, # 30 tab, 0 Refill(s) Active 09/04/2013 [facility] fentaNYL 25 mcg/hr transdermal film, extended release 1 patch, TOP, PRN, 0 Refill(s) Active 09/04/2013 [facility] Lorazepam 1 tablet as needed Orally Active 1 MG Orally once a day [place] Reji Landeros Trazodone HCl 1 tablet at bedtime as needed Orally Active 50 MG Orally Once a day [place] Reji Landeros Metformin HCl 1 tablet with meals Orally Active 500 MG Orally Twice a day [place] Reji Landeros Crestor 1 tablet Orally Active 10 MG Orally Once a day [place] Reji Landeros Hydrocodone-Acetaminophen 1 tablet as needed Orally Active 10- 325 MG Orally every 6 hrs [place] Reji Landeros Tizanidine HCl 1 tablet as needed Orally Active 4 MG Orally bid [place] Reji Landeros Escitalopram Oxalate 1 tablet Orally Active 10 MG Orally Once a day [place] Reji Landeros PredniSONE TAKE 2 TABLETS BY MOUTH DAILY NEEDED NA Active 5mg once a day prn [place] Re[facility] Landeros Pantoprazole Sodium 1 tablet Orally Active 40 MG Orally Before each meal and then before bed [place] Reji Landeros Pantoprazole Sodium 1 tablet Orally Active 40 MG Orally Before each meal and then before bed [place] Reji Landeros Metformin HCl 1 tablet with meals Orally Active 500 MG Orally Twice a day [place] Reji Landeros Trazodone HCl 1 tablet at bedtime as needed Orally Active 50 MG Orally Once a day [place] Reji Landeros Lorazepam 1 tablet as needed Orally Active 1 MG Orally once a day [place] Reji Landeros Crestor 1 tablet Orally Active 10 MG Orally Once a day [place] Reji Landeros Escitalopram Oxalate 1 tablet Orally Active 10 MG Orally Once a day [place] Reji Landeros Macrobid 1 capsule with food Orally Active 100 MG Orally every 12 hrs [place] Reji L[facility]os PredniSONE 2 tablets Orally Active 5 MG Orally [facility] Hydrocodone-Acetaminophen 1 tablet as needed Orally Active 10- 325 MG Orally every 6 hrs [place] Reji Landeros Prolia as directed Subcutaneous Active 60 MG/ML Subcutaneous every 6 months [place] Reji Landeros Medrol Dose Eric as directed Orally Active 4mg Orally once a day [facility] PredniSONE 1 tablet as needed Orally Active 5 MG Orally Once a day [facility] Vitamin D (Ergocalciferol) 1 capsule Orally Active 56498 UNIT Orally once a week [facility] Vitamin D (Ergocalciferol) 1 CAPSULE ONCE A WEEK ORALLY 90 DAYS NA Active 20258 UNIT [facility] Bentyl 2 capsules Orally Active 10 MG Orally Four times a day [facility] Rosuvastatin Calcium 1 tablet Orally Active 10 MG Orally Once a day [facility] Lyrica 1 capsule Orally Active 75 MG Orally Once a day [facility] Allergies, Adverse Reactions, Alerts Substance Category Reaction Severity Reaction type Status Date Reported Comments Source N.K.D.A. Adverse Reaction Info Not Available Adverse Reaction Active 07/25/2018 Reji Landeros Immunizations Immunization Date Given Site Status Last Updated Comments Source Flu Vaccine 03/26/2017 completed Reji [facility]os Results Order Name Results Value Reference Range Date Interpretation Comments Source Chest 2 views DX Chest 2 views DX EXAM: XR CHEST 2 VIEWS DATE: 02/05/2018 1:57 PM CDT INDICATION: - Z95.2 Presence of prosthetic heart valve ADDITIONAL INFORMATION: None. COMPARISON: Chest x-ray 12/28/2015. TECHNIQUE: PA and lateral chest radiographs. Number of images: 2 FINDINGS: Lines and tubes and hardware: Prosthetic aortic valve. Lower cervical fixation plates and screws. Lungs and pleura: No pulmonary or pleural based abnormality is identified. There is dilatation of the proximal pulmonary arteries suggesting pulmonary arterial hypertension. There is minimal right basilar atelectasis. No pneumothorax. Heart and mediastinum: The heart size is normal for technique. The mediastinal contours are normal. Bones: No acute bony abnormality is identified. Dextrocurvature of the thoracic spine with mild levocurvature of the lumbar spine. Soft Tissues: Unremarkable. IMPRESSION: 1. No acute cardiopulmonary abnormality seen. 2. Minimal right basilar atelectasis. 3. Line(s) and tube(s) as above. 02/05/2018 - - Read by: Roderick Shane MD Dictated Date/time: 02/05/18 14:43 Electronically Signed by: Roderick Shane MD 02/05/18 14:55 FINAL REPORT RASHAD Bradenann Chest 2 views DX Chest 2 views DX EXAM: XR CHEST 2 VIEWS DATE: 12/28/2015 11:57 AM CDT INDICATION: CHF (congestive heart failure)/DM (diabetes mellitus)/Pulmonary HTN COMPARISON: 12/29/2014 TECHNIQUE: PA and lateral chest radiographs FINDINGS: Mild cardiomegaly with prosthetic aortic valve seen again. Thoracic aortic arch calcifications seen again. Prominence of bilateral isaiah corresponding to pulmonary arterial hypertension seen again. Bilateral basal atelectatic opacities seen again. Bones are unchanged. IMPRESSION: No significant interval change. 12/28/2015 - - Read by: Bassam Mata Dictated Date/time: 12/28/15 15:42 Electronically Signed by: Bassam Mata 12/28/15 15:43 FINAL REPORT RASHAD Kasper Chest 2 views DX Chest 2 views DX EXAM: Chest x-ray 2 views INDICATION: Aortic valve disorder COMPARISON: Chest 2 views performed 12/29/2013. TECHNIQUE: PA and lateral radiographs of the chest. FINDINGS: Lungs are symmetrically well expanded with no evidence of confluent consolidation, effusion, or pneumothorax. Cardiomediastinal silhouette is not enlarged. Aortic valvular replacement is noted. Prominence of the central pulmonary arteries suggestive of pulmonary hypertension, unchanged. No acute osseous abnormalities noted. Postsurgical hardware in the lower cervical spine noted. IMPRESSION: See above. 12/29/2014 - - Read by: Cr Peter MD Dictated Date/time: 12/29/14 16:27 Electronically Signed by: Cr Peter MD 12/29/14 16:31 FINAL REPORT RASHAD Kasper Chest 2 views Chest 2 views EXAM: XR CHEST 2 VIEWS DATE: Dec 29, 2013 INDICATION: Aortic Valve Disorder COMPARISON: CT chest September 12, 2013, chest x-ray December 07, 2013 TECHNIQUE: Frontal and lateral chest radiographs DISCUSSION: The lungs are clear. Blunting of the right costophrenic angle may be due to a small pleural effusion. Mild right apical pleural thickening is noted. Mild cardiomegaly is again noted. The aorta is calcified and tortuous. Enlargement of the pulmonary arteries, left worse than right is again noted. Changes of aortic valve replacement are again noted. Postsurgical hardware is noted in the lower cervical spine. S shaped scoliosis of the thoracolumbar spine is noted. Moderate spondylosis of the thoracic spine is seen. IMPRESSION: 1. Mild cardiomegaly. 2. Blunting of the right costophrenic angle may be due to a small pleural effusion. 3. Enlargement of the pulmonary arteries, left worse than right which can be seen with pulmonary HTN or pulmonary stenosis. 4. Changes of aortic valve replacement, stable. 12/29/2013 - - Read by: Carol Grayson MD Dictated Date/time: 12/30/13 08:21 Electronically Signed by: Carol Grayson MD 12/30/13 08:32 FINAL REPORT [facility] Chest 1view Chest 1view PORTABLE CHEST 2013-12-07 14:36:00 COMPARISON: 12/05/2013 CLINICAL INDICATION: Abnormal chest sounds DISCUSSION: Right IJ line has been removed in the interim. No pneumothorax . Question tiny right pleural effusion. Lungs are clear. Cardiac silhouette and mediastinum are unchanged in this status post transcatheter aortic valve replacement. Note again of marked enlargement of central pulmonary arteries. IMPRESSION: Removal of right IJ central line. 12/07/2013 - - Read by: Faizan Fuentes MD Dictated Date/time: 12/08/13 08:56 Electronically Signed by: Faizan Fuentes MD 12/08/13 08:57 FINAL REPORT [facility] CARDIAC ENZYMES BNP 116 pg/mL <=100 pg/mL 12/07/2013 8Interpretive Data: Elevated results are in line with increasing severity of congestive heart failure. Minor elevations between 100 and 300 may be seen with Myocardial Ischemia, Sodium retaining drugs, and compensated/treated heart failure. [facility] CHEM PANEL Magnesium Lvl 2.2 mg/dL 1.8 - 2.4 12/07/2013 [facility] CHEM PANEL Phosphorus 3.2 mg/dL 2.5 - 4.5 12/07/2013 [facility] CHEM PANEL eGFR 75 mL/min/1.73m2 12/07/2013 1Result Comment: The eGFR is calculated using the CKD-EPI formula. In most young, healthy individuals the eGFR will be >90 mL/min/1.73m2. The eGFR declines with age. An eGFR of 60-89 may be normal in some populations, particularly the elderly, for whom the CKD-EPI formula has not been extensively validated. Use of the eGFR is not recommended in the following populations: Individuals with unstable creatinine concentrations, including patients and those with serious co-morbid conditions. Patients with extremes in muscle mass or diet. The data above are obtained from the National Kidney Disease Education Program (NKDEP) which additionally recommends that when the eGFR is used in patients with extremes of body mass index for purposes of drug dosing, the eGFR should be multiplied by the estimated BMI. [facility] CHEM PANEL Creatinine Lvl 0.8 mg/dL 0.5 - 1.4 12/07/2013 [facility] CHEM PANEL BUN 8 mg/dL 7 - 22 12/07/2013 [facility] CHEM PANEL Glucose Lvl 161 mg/dL 70 - 99 12/07/2013 5Interpretive Data: Adult reference range values reflect the clinical guidelines of the [employer]. [facility] CHEM PANEL Potassium Lvl 3.9 meq/L 3.5 - 5.1 12/07/2013 [facility] CHEM PANEL Chloride Lvl 102 meq/L 95 - 109 12/07/2013 [facility] CHEM PANEL Sodium Lvl 136 meq/L 135 - 145 12/07/2013 [facility] CHEM PANEL Calcium Lvl 8.7 mg/dL 8.5 - 10.5 12/07/2013 [facility] CHEM PANEL CO2 22 meq/L 24 - 32 12/07/2013 [facility] CHEM PANEL AGAP 15.9 meq/L 10.0 - 20.0 12/07/2013 [facility] HEMATOLOGY PTT 31.9 s 22.9 - 35.8 12/07/2013 14Interpretive Data: Heparin Therapeutic Range: 57 - 92 Seconds [facility] HEMATOLOGY PT 14.6 s 12.0 - 14.7 12/07/2013 [facility] HEMATOLOGY INR 1.15 0.85 - 1.17 12/07/2013 11Interpretive Data: RECOMMENDED RANGES FOR PROTIME INR: 2.0-3.0 for most medical and surgical thromboembolic states. 2.5-3.5 for artificial heart valves and recurrent embolism. INR SHOULD BE USED ONLY FOR PATIENTS ON STABLE ANTICOAGULANT THERAPY. [facility] HEMATOLOGY MCV 73.1 fL 81.0 - 99.0 12/07/2013 [facility] HEMATOLOGY MCHC 32.2 g/dL 32.0 - 36.0 12/07/2013 [facility] HEMATOLOGY MCH 23.6 pg 27.0 - 31.0 12/07/2013 [facility] HEMATOLOGY Hct 31.2 % 36.0 - 48.0 12/07/2013 [facility] HEMATOLOGY MPV 8.5 fL 7.4 - 10.4 12/07/2013 [facility] HEMATOLOGY Platelet 203 K/CMM 133 - 450 12/07/2013 [facility] HEMATOLOGY RDW 19.2 % 11.5 - 14.5 12/07/2013 [facility] HEMATOLOGY Hgb 10.1 g/dL 12.0 - 16.0 12/07/2013 [facility] HEMATOLOGY WBC 7.5 K/CMM 3.7 - 10.4 12/07/2013 [facility] HEMATOLOGY RBC 4.27 M/CMM 4.20 - 5.40 12/07/2013 [facility] HEMATOLOGY Eosinophils 0.7 % 0.0 - 4.0 12/07/2013 [facility] HEMATOLOGY Basophils 0.7 % 0.0 - 1.0 12/07/2013 [facility] HEMATOLOGY Monocytes 7.7 % 2.0 - 12.0 12/07/2013 [facility] HEMATOLOGY Lymphocytes 14.5 % 20.0 - 40.0 12/07/2013 [facility] HEMATOLOGY Lymphocytes # 1.1 K/CMM 1.0 - 5.5 12/07/2013 [facility] HEMATOLOGY Segs-Bands # 5.7 K/CMM 1.5 - 8.1 12/07/2013 [facility] HEMATOLOGY Monocytes # 0.6 K/CMM 0.0 - 0.8 12/07/2013 [facility] HEMATOLOGY Eosinophils # 0.1 K/CMM 0.0 - 0.5 12/07/2013 [facility] HEMATOLOGY Basophils # 0.1 K/CMM 0.0 - 0.2 12/07/2013 [facility] HEMATOLOGY Microcyte 2+ *ABN* (12/07/13 5:30 AM) None Seen 12/07/2013 [facility] HEMATOLOGY Segs 76.4 % 45.0 - 75.0 12/07/2013 [facility] PARATHYROID PROFILE Ca Ion WB 1.10 mMol/L 1.05 - 1.25 12/06/2013 [facility] PARATHYROID PROFILE Ca Norm WB 1.12 mMol/L 1.05 - 1.25 12/06/2013 [facility] CARDIAC ENZYMES Troponin-I 0.27 ng/mL 0.00 - 0.40 12/06/2013 [facility] CARDIAC ENZYMES BNP 183 pg/mL <=100 pg/mL 12/06/2013 9Interpretive Data: Elevated results are in line with increasing severity of congestive heart failure. Minor elevations between 100 and 300 may be seen with Myocardial Ischemia, Sodium retaining drugs, and compensated/treated heart failure. [facility] CARDIAC ENZYMES Troponin-T 0.017 ng/mL 0.000 - 0.100 12/06/2013 [facility] CARDIAC ENZYMES Troponin-I 0.29 ng/mL 0.00 - 0.40 12/06/2013 [facility] CHEM PANEL Albumin Lvl 3.5 g/dL 3.5 - 5.0 12/06/2013 [facility] CHEM PANEL Bili Direct 0.1 mg/dL 0.0 - 0.3 12/06/2013 [facility] CHEM PANEL Alk Phos 98 unit/L 39 - 136 12/06/2013 [facility] CHEM PANEL ALT 18 unit/L 0 - 65 12/06/2013 [facility] CHEM PANEL AST 19 unit/L 0 - 37 12/06/2013 [facility] CHEM PANEL Total Protein 7.4 g/dL 6.4 - 8.4 12/06/2013 [facility] CHEM PANEL Bili Total 0.5 mg/dL 0.2 - 1.3 12/06/2013 [facility] CHEM PANEL Bili Indirect 0.4 mg/dL 0.0 - 1.0 12/06/2013 [facility] CHEM PANEL A/G Ratio 0.9 0.7 - 1.6 12/06/2013 [facility] CHEM PANEL Globulin 3.9 g/dL 2.0 - 4.0 12/06/2013 [facility] CHEM PANEL Phosphorus 3.7 mg/dL 2.5 - 4.5 12/06/2013 [facility] CHEM PANEL Magnesium Lvl 2.8 mg/dL 1.8 - 2.4 12/06/2013 [facility] ELECTROLYTES AGAP 11.2 meq/L 10.0 - 20.0 12/06/2013 [facility] ELECTROLYTES eGFR 58 mL/min/1.73m2 12/06/2013 2Result Comment: The eGFR is calculated using the CKD-EPI formula. In most young, healthy individuals the eGFR will be >90 mL/min/1.73m2. The eGFR declines with age. An eGFR of 60-89 may be normal in some populations, particularly the elderly, for whom the CKD-EPI formula has not been extensively validated. Use of the eGFR is not recommended in the following populations: Individuals with unstable creatinine concentrations, including patients and those with serious co-morbid conditions. Patients with extremes in muscle mass or diet. The data above are obtained from the National Kidney Disease Education Program (NKDEP) which additionally recommends that when the eGFR is used in patients with extremes of body mass index for purposes of drug dosing, the eGFR should be multiplied by the estimated BMI. [facility] ELECTROLYTES BUN 9 mg/dL 7 - 12/06/2013 [facility] ELECTROLYTES Glucose Lvl 200 mg/dL 70 - 99 12/06/2013 6Interpretive Data: Adult reference range values reflect the clinical guidelines of the [employer]. [facility] ELECTROLYTES Calcium Lvl 8.5 mg/dL 8.5 - 10.5 12/06/2013 [facility] ELECTROLYTES Potassium Lvl 4.2 meq/L 3.5 - 5.1 12/06/2013 [facility] ELECTROLYTES Chloride Lvl 103 meq/L 95 - 109 12/06/2013 [facility] ELECTROLYTES Sodium Lvl 137 meq/L 135 - 145 12/06/2013 [facility] ELECTROLYTES CO2 27 meq/L 24 - 32 12/06/2013 [facility] ELECTROLYTES Creatinine Lvl 1.0 mg/dL 0.5 - 1.4 12/06/2013 [facility] HEMATOLOGY Monocytes # 0.6 K/CMM 0.0 - 0.8 12/06/2013 [facility] HEMATOLOGY Basophils # 0.1 K/CMM 0.0 - 0.2 12/06/2013 [facility] HEMATOLOGY Microcyte 1+ *ABN* (12/06/13 1:22 AM) None Seen 12/06/2013 [facility] HEMATOLOGY Lymphocytes # 1.0 K/CMM 1.0 - 5.5 12/06/2013 [facility] HEMATOLOGY Segs-Bands # 10.4 K/CMM 1.5 - 8.1 12/06/2013 [facility] HEMATOLOGY Lymphocytes 8.3 % 20.0 - 40.0 12/06/2013 [facility] HEMATOLOGY Monocytes 5.3 % 2.0 - 12.0 12/06/2013 [facility] HEMATOLOGY Segs 85.6 % 45.0 - 75.0 12/06/2013 [facility] HEMATOLOGY Basophils 0.8 % 0.0 - 1.0 12/06/2013 [facility] HEMATOLOGY PTT 30.0 s 22.9 - 35.8 12/06/2013 15Interpretive Data: Heparin Therapeutic Range: 57 - 92 Seconds [facility] HEMATOLOGY PT 14.4 s 12.0 - 14.7 12/06/2013 [facility] HEMATOLOGY INR 1.13 0.85 - 1.17 12/06/2013 12Interpretive Data: RECOMMENDED RANGES FOR PROTIME INR: 2.0-3.0 for most medical and surgical thromboembolic states. 2.5-3.5 for artificial heart valves and recurrent embolism. INR SHOULD BE USED ONLY FOR PATIENTS ON STABLE ANTICOAGULANT THERAPY. [facility] HEMATOLOGY Platelet 266 K/CMM 133 - 450 12/06/2013 [facility] HEMATOLOGY MPV 8.5 fL 7.4 - 10.4 12/06/2013 [facility] HEMATOLOGY WBC 12.1 K/CMM 3.7 - 10.4 12/06/2013 [facility] HEMATOLOGY RDW 19.3 % 11.5 - 14.5 12/06/2013 [facility] HEMATOLOGY MCH 23.2 pg 27.0 - 31.0 12/06/2013 [facility] HEMATOLOGY MCHC 31.8 g/dL 32.0 - 36.0 12/06/2013 [facility] HEMATOLOGY Hgb 10.3 g/dL 12.0 - 16.0 12/06/2013 [facility] HEMATOLOGY RBC 4.45 M/CMM 4.20 - 5.40 12/06/2013 [facility] HEMATOLOGY Hct 32.4 % 36.0 - 48.0 12/06/2013 [facility] HEMATOLOGY MCV 72.8 fL 81.0 - 99.0 12/06/2013 [facility] CARDIAC ENZYMES Troponin-T 0.020 ng/mL 0.000 - 0.100 12/06/2013 [facility] CARDIAC ENZYMES Troponin-I 0.36 ng/mL 0.00 - 0.40 12/06/2013 [facility] CARDIAC ENZYMES BNP 70 pg/mL <=100 pg/mL 12/05/2013 10Interpretive Data: Elevated results are in line with increasing severity of congestive heart failure. Minor elevations between 100 and 300 may be seen with Myocardial Ischemia, Sodium retaining drugs, and compensated/treated heart failure. [facility] CARDIAC ENZYMES Troponin-T 0.037 ng/mL 0.000 - 0.100 12/05/2013 [facility] CHEM PANEL Magnesium Lvl 2.3 mg/dL 1.8 - 2.4 12/05/2013 [facility] CHEM PANEL eGFR 58 mL/min/1.73m2 12/05/2013 3Result Comment: The eGFR is calculated using the CKD-EPI formula. In most young, healthy individuals the eGFR will be >90 mL/min/1.73m2. The eGFR declines with age. An eGFR of 60-89 may be normal in some populations, particularly the elderly, for whom the CKD-EPI formula has not been extensively validated. Use of the eGFR is not recommended in the following populations: Individuals with unstable creatinine concentrations, including patients and those with serious co-morbid conditions. Patients with extremes in muscle mass or diet. The data above are obtained from the National Kidney Disease Education Program (NKDEP) which additionally recommends that when the eGFR is used in patients with extremes of body mass index for purposes of drug dosing, the eGFR should be multiplied by the estimated BMI. [facility] CHEM PANEL Glucose Lvl 187 mg/dL 70 - 99 12/05/2013 7Interpretive Data: Adult reference range values reflect the clinical guidelines of the [employer]. [facility] CHEM PANEL Alk Phos 95 unit/L 39 - 136 12/05/2013 [facility] CHEM PANEL BUN 11 mg/dL 7 - 22 12/05/2013 [facility] CHEM PANEL ALT 19 unit/L 0 - 65 12/05/2013 [facility] CHEM PANEL Albumin Lvl 3.4 g/dL 3.5 - 5.0 12/05/2013 [facility] CHEM PANEL Chloride Lvl 104 meq/L 95 - 109 12/05/2013 [facility] CHEM PANEL Potassium Lvl 4.2 meq/L 3.5 - 5.1 12/05/2013 [facility] CHEM PANEL Creatinine Lvl 1.0 mg/dL 0.5 - 1.4 12/05/2013 [facility] CHEM PANEL Sodium Lvl 139 meq/L 135 - 145 12/05/2013 [facility] CHEM PANEL Total Protein 7.5 g/dL 6.4 - 8.4 12/05/2013 [facility] CHEM PANEL CO2 26 meq/L 24 - 32 12/05/2013 [facility] CHEM PANEL Calcium Lvl 8.4 mg/dL 8.5 - 10.5 12/05/2013 [facility] CHEM PANEL Bili Total 0.5 mg/dL 0.2 - 1.3 12/05/2013 [facility] CHEM PANEL AST 20 unit/L 0 - 37 12/05/2013 [facility] CHEM PANEL Globulin 4.1 g/dL 2.0 - 4.0 12/05/2013 [facility] CHEM PANEL B/C Ratio 11 6 - 25 12/05/2013 [facility] CHEM PANEL AGAP 13.2 meq/L 10.0 - 20.0 12/05/2013 [facility] CHEM PANEL A/G Ratio 0.8 0.7 - 1.6 12/05/2013 [facility] CHEM PANEL Amylase Lvl 42 unit/L 25 - 115 12/05/2013 [facility] CHEM PANEL Lipase Lvl 190 unit/L 73 - 393 12/05/2013 [facility] CHEM PANEL Phosphorus 3.4 mg/dL 2.5 - 4.5 12/05/2013 [facility] CHEM PANEL Creatinine Lvl 1.0 mg/dL 0.5 - 1.4 12/05/2013 [facility] CHEM PANEL eGFR 58 mL/min/1.73m2 12/05/2013 4Result Comment: The eGFR is calculated using the CKD-EPI formula. In most young, healthy individuals the eGFR will be >90 mL/min/1.73m2. The eGFR declines with age. An eGFR of 60-89 may be normal in some populations, particularly the elderly, for whom the CKD-EPI formula has not been extensively validated. Use of the eGFR is not recommended in the following populations: Individuals with unstable creatinine concentrations, including patients and those with serious co-morbid conditions. Patients with extremes in muscle mass or diet. The data above are obtained from the National Kidney Disease Education Program (NKDEP) which additionally recommends that when the eGFR is used in patients with extremes of body mass index for purposes of drug dosing, the eGFR should be multiplied by the estimated BMI. [facility] HEMATOLOGY Eosinophils 0.4 % 0.0 - 4.0 12/05/2013 [facility] HEMATOLOGY Monocytes 6.5 % 2.0 - 12.0 12/05/2013 [facility] HEMATOLOGY Segs 78.7 % 45.0 - 75.0 12/05/2013 [facility] HEMATOLOGY Lymphocytes 13.9 % 20.0 - 40.0 12/05/2013 [facility] HEMATOLOGY Microcyte 1+ *ABN* (12/05/13 2:00 PM) None Seen 12/05/2013 [facility] HEMATOLOGY Monocytes # 0.5 K/CMM 0.0 - 0.8 12/05/2013 [facility] HEMATOLOGY Segs-Bands # 6.6 K/CMM 1.5 - 8.1 12/05/2013 [facility] HEMATOLOGY Basophils 0.5 % 0.0 - 1.0 12/05/2013 [facility] HEMATOLOGY Lymphocytes # 1.2 K/CMM 1.0 - 5.5 12/05/2013 [facility] HEMATOLOGY RDW 18.9 % 11.5 - 14.5 12/05/2013 [facility] HEMATOLOGY Platelet 241 K/CMM 133 - 450 12/05/2013 [facility] HEMATOLOGY MCH 23.3 pg 27.0 - 31.0 12/05/2013 [facility] HEMATOLOGY MCV 72.2 fL 81.0 - 99.0 12/05/2013 [facility] HEMATOLOGY Hct 32.2 % 36.0 - 48.0 12/05/2013 [facility] HEMATOLOGY MPV 8.2 fL 7.4 - 10.4 12/05/2013 [facility] HEMATOLOGY MCHC 32.3 g/dL 32.0 - 36.0 12/05/2013 [facility] HEMATOLOGY Hgb 10.4 g/dL 12.0 - 16.0 12/05/2013 [facility] HEMATOLOGY RBC 4.46 M/CMM 4.20 - 5.40 12/05/2013 [facility] HEMATOLOGY WBC 8.4 K/CMM 3.7 - 10.4 12/05/2013 [facility] HEMATOLOGY INR 1.18 0.85 - 1.17 12/05/2013 13Interpretive Data: RECOMMENDED RANGES FOR PROTIME INR: 2.0-3.0 for most medical and surgical thromboembolic states. 2.5-3.5 for artificial heart valves and recurrent embolism. INR SHOULD BE USED ONLY FOR PATIENTS ON STABLE ANTICOAGULANT THERAPY. [facility] HEMATOLOGY PT 14.9 s 12.0 - 14.7 12/05/2013 [facility] HEMATOLOGY PTT 32.0 s 22.9 - 35.8 12/05/2013 16Interpretive Data: Heparin Therapeutic Range: 57 - 92 Seconds [facility] BACTERIAL - SEROLOGY MRSA by PCR Negative 17 (12/05/13 11:49 AM) 12/05/2013 17Interpretive Data: Interpretive Data: The [employer] Light[employer] MRSA assay is a qualitative test for the direct detection of nasal colonization with methicillin-resistant Staphylococcus aureus (MRSA) to aid in the prevention and control of MRSA infections in healthcare settings. A positive result does not indicate an infection or require treatment. A negative result does not exclude colonization or infection. The polymerase chain reaction (PCR) assay detects a proprietary sequence indicative of the integration of the SCCmec cassette into the Staphylococcus aureus chromosome, indicating the presence of MRSA DNA. The assay utilizes FDA cleared IVD reagents. Performance characteristics have been verified by the [facility] within the [facility]. The [facility] is authorized under the Clinical Laboratory Improvement Amendment of 1988 (CLIA-88) to perform high complexity testing. [facility] PARATHYROID PROFILE Ca Ion WB 1.08 mMol/L 1.05 - 1.25 12/05/2013 [facility] PARATHYROID PROFILE Ca Norm WB 1.04 mMol/L 1.05 - 1.25 12/05/2013 [facility] CHEM PANEL Lactic Acid Lvl 1.8 mMol/L 0.5 - 2.2 12/05/2013 [facility] HEMATOLOGY Basophils # 0.1 K/CMM 0.0 - 0.2 12/05/2013 [facility] HEMATOLOGY Eosinophils # 0.2 K/CMM 0.0 - 0.5 12/05/2013 [facility] HEMATOLOGY Eosinophils 2.0 % 0.0 - 4.0 12/05/2013 [facility] SPECIAL CHEMISTRY Hgb A1C 7.9 % <=5.6 % 12/05/2013 [facility] THYROID PANEL TSH 2.990 uIU/mL 0.360 - 3.740 12/05/2013 [facility] Chest 1view Chest 1view PORTABLE CHEST 2013-12-05 11:58:00 COMPARISON: 12/04/2013 CLINICAL INDICATION: Line Placement DISCUSSION: Interval transcatheter aortic valve replacement. A right IJ line terminates within lower SVC. No pneumothorax. Possible tiny left pleural effusion. Cardiac silhouette and mediastinum are unchanged. Note again of marked enlargement of the pulmonary arteries. IMPRESSION: 1. Interval transcatheter aortic valve replacement. 2. Note again of marked enlargement of pulmonary arteries. 12/05/2013 - - Read by: Faizan Fuentes MD Dictated Date/time: 12/05/13 12:46 Electronically Signed by: Faizan Fuentes MD 12/05/13 12:47 FINAL REPORT [facility] BLOOD BANK RESULTS Antibody Scrn Negative (12/05/13 6:45 AM) 12/05/2013 [facility] BLOOD BANK RESULTS ABO/Rh A POS 12/05/2013 [facility] BLOOD BANK RESULTS FFP product Product available (12/05/13 6:26 AM) 12/05/2013 [facility] BLOOD BANK RESULTS RBC product Product available (12/05/13 6:26 AM) 12/05/2013 [facility] HEMATOLOGY Eosinophils # 0.1 K/CMM 0.0 - 0.5 12/05/2013 [facility] Chest 2 views Chest 2 views INDICATION: Shortness of breath. PROCEDURE: Chest, 2 view. FINDINGS: An anterior fixation plate is present at C6-C7 with 2 screws at each level anchoring the plate. The bones are extremely osteopenic. There is anterior wedging of mid and lower thoracic verbal bodies and loss of extensive disc space anteriorly leading to a prominent kyphosis. The heart size is prominent with a CT ratio of 14.3/27. The trachea is shifted rightward likely from mass effect from the aorta. The central pulmonary vessels are prominent bilaterally and possibly slightly more prominently on the left. There are subsegmental linear densities in both lower lungs possibly representing areas of scar and fibrosis or atelectasis. No pleural effusions are present. IMPRESSION: 1. Prominent pulmonary arteries bilaterally, left greater than right. Correlate for pulmonary hypertension or pulmonary valvular disease. 2. There is rightward shift of the trachea from mass effect by the aortic arch. This appears slightly more obvious on the chest plain exam than on recent CT scan from September 12, 2013. 12/04/2013 - - Read by: Maninder Negron MD Dictated Date/time: 12/04/13 15:44 Electronically Signed by: Maninder Negron MD 12/04/13 15:49 [facility] eGFR 75 mL/min/1.73m2 09/12/2013 1Result Comment: The eGFR is calculated using the CKD-EPI formula. In most young, healthy individuals the eGFR will be >90 mL/min/1.73m2. The eGFR declines with age. An eGFR of 60-89 may be normal in some populations, particularly the elderly, for whom the CKD-EPI formula has not been extensively validated. Use of the eGFR is not recommended in the following populations: Individuals with unstable creatinine concentrations, including patients and those with serious co-morbid conditions. Patients with extremes in muscle mass or diet. The data above are obtained from the National Kidney Disease Education Program (NKDEP) which additionally recommends that when the eGFR is used in patients with extremes of body mass index for purposes of drug dosing, the eGFR should be multiplied by the estimated BMI. [facility] CHEM PANEL POC Creatinine 0.8 mg/dL 0.5 - 1.4 09/12/2013 [facility] HVI VAS Arterial Extracranial Doppler Bi HVI VAS Arterial Extracranial Doppler Bi Indications carotid stenosis; congestive heart failure.. IMPRESSION: 1. There is evidence of mild atherosclerotic disease of bilateral carotid bulbs and internal carotid arteries consistent with less than 50% stenosis. COMMENT: Bilateral grayscale, color-flow, and Doppler examination of the extracranial carotid arterial system was performed here. No comparison studies are available for review. On the right, mild atherosclerotic plaque is noted. The internal carotid to common carotid peak systolic velocity ratio is 0.99. The peak systolic velocity in the internal carotid artery is 88.5 cm/sec. This is consistent with less than 50% stenosis. On the left, mild atherosclerotic plaque is noted. The internal carotid to common carotid peak systolic velocity ratio is 0.89. The peak systolic velocity in the internal carotid artery is 73.9 cm/sec. This is consistent with less than 50% stenosis. Bilateral external carotid arteries are patent. Bilateral antegrade flow was noted in the vertebral arteries. 09/12/2013 - - This report was dictated by a Medical Cost Consultant/Fellow. I have personally reviewed the images as well as the Resident's interpretation and agree with the findings. Read by: [id number] Nieves RES [id number] Resident: [id number] Nieves RES [id number] Dictated Date/time: 09/12/13 18:01 Electronically Signed by: Alejandro Mesa MD 09/29/13 15:04 FINAL REPORT [facility] Chest w contrast CT Chest w contrast CT CT CHEST WITH CONTRAST 2013-09-12 12:10:00 COMPARISON: None CLINICAL INDICATION: History of CHF and pulmonary hypertension. History of aortic valvular disease, shortness of breath, and angina. TECHNIQUE: Following intravenous administration of contrast, the chest was scanned from apices to the bases. Multiplanar reformatted images in the sagittal and coronal planes as well as maximal intensity projection (MIP) images were reviewed. FINDINGS: MEDIASTINUM/ISAIAH/VESSELS: The central pulmonary arteries are dilated, left more so than right. At the bifurcation of the pulmonary artery, the left pulmonary artery measures 4.4 cm and the right pulmonary artery measures 3.7 cm. Pulmonic valve leaflets are thickened. Note also of aortic valvular and mitral annular calcifications. Atherosclerosis including LAD and RCA coronary calcifications. Cardiac size is normal. No pericardial fluid or thickening. LUNGS/PLEURA: Minimal patchy ground glass opacities within right upper lobe are nonspecific but could represent infection in the appropriate clinical setting. 2 mm nodule right lower lobe on image 72 of series 4. No pleural effusions or pneumothorax. BONES/SOFT TISSUES: No acute skeletal abnormality. UPPER ABDOMEN: Imaged portions of the upper abdomen are unremarkable. CONCLUSION: 1. Markedly dilated left and right pulmonary arteries with thickening of pulmonic valve leaflets. Findings are suggestive of pulmonic stenosis. Recommend echocardiogram if not performed previously. 2. Aortic valvular calcifications. 3. Minimal groundglass opacities within right upper lobe are nonspecific but could represent infection in the appropriate clinical setting. 09/12/2013 - - Read by: Faizan Fuentes MD Dictated Date/time: 09/12/13 13:37 Electronically Signed by: Faizan Fuentes MD 09/12/13 13:54 FINAL REPORT [facility] Vital Signs Vital Sign Value Date Comments Source Weight 159.3 07/25/2018 Erji Landeros Height 61 07/25/2018 Reji Landeros Temperature Oral (F) 98.0 F 07/25/2018 Reji Landeros Heart Rate 96 07/25/2018 Reji Landeros Diastolic (mm Hg) 58 07/25/2018 Reji Landeros Systolic (mm Hg) 90 07/25/2018 Reji Landeros BMI Calculated 31.12 07/23/2018 [facility] Height 152.4 cm 07/23/2018 [facility] Weight 72.273 07/23/2018 [facility] Temperature Oral (F) 98.6 F 07/23/2018 [facility] Respitory Rate 16 07/23/2018 [facility] Heart Rate 97 07/23/2018 [facility] Systolic (mm Hg) 133 07/23/2018 [facility] Diastolic (mm Hg) 81 07/23/2018 [facility] Weight 165.7 05/27/2018 Reji Landeros Height 60 05/27/2018 Reji Landeros Temperature Oral (F) 97.0 F 05/27/2018 Reji Landeros Heart Rate 80 05/27/2018 Reji Landeros Diastolic (mm Hg) 62 05/27/2018 Reji Landeros Systolic (mm Hg) 130 05/27/2018 Reji Landeros Weight 161 04/25/2018 Reji Landeros Height 60 04/25/2018 Reji Landeros Temperature Oral (F) 97.2 F 04/25/2018 Reji Landeros Heart Rate 88 04/25/2018 Reji Landeros Diastolic (mm Hg) 80 04/25/2018 Reji Landeros Systolic (mm Hg) 142 04/25/2018 Reji Landeros Weight 160 03/27/2018 Reji Landeros Height 60 03/27/2018 Reji Landeros Temperature Oral (F) 97.4 F 03/27/2018 Reji Landeros Heart Rate 116 03/27/2018 Reji Landeros Diastolic (mm Hg) 76 03/27/2018 Reji Landeros Systolic (mm Hg) 130 03/27/2018 Reji Landeros Weight 160.8 02/22/2018 Reji Landeros Height 60 02/22/2018 Reji Landeros Temperature Oral (F) 98.2 F 02/22/2018 Reji Landeros Heart Rate 76 02/22/2018 Reji Landeros Diastolic (mm Hg) 80 02/22/2018 Reji Landeros Systolic (mm Hg) 118 02/22/2018 Reji Landeros Weight 164 01/22/2018 Reji Landeros Height 61 01/22/2018 Reji Landeros Temperature Oral (F) 98.4 F 01/22/2018 Reji Landeros Heart Rate 84 01/22/2018 Reji Landeros Diastolic (mm Hg) 80 01/22/2018 Reji Landeros Systolic (mm Hg) 126 01/22/2018 Reji Landeros Weight 166 12/20/2017 Reji Landeros Height 60 12/20/2017 Reji Landeros Temperature Oral (F) 97.4 F 12/20/2017 Reji Landeros Heart Rate 92 12/20/2017 Reji Landeros Diastolic (mm Hg) 78 12/20/2017 Reji Landeros Systolic (mm Hg) 130 12/20/2017 Reji Landeros Weight 163.6 11/20/2017 Reji Landeros Height 61 11/20/2017 Reji Landeros Temperature Oral (F) 97.5 F 11/20/2017 Reji Landeros Heart Rate 102 11/20/2017 Reji Landeros Diastolic (mm Hg) 90 11/20/2017 Reji Landeros Systolic (mm Hg) 150 11/20/2017 Reji Landeros Systolic (mm Hg) 100 10/22/2017 Reji Landeros Weight 162.8 10/22/2017 Reji Landeros Height 61 10/22/2017 Reji Landeros Temperature Oral (F) 99.0 F 10/22/2017 Reji Landeros Heart Rate 88 10/22/2017 Reji Landeros Diastolic (mm Hg) 60 10/22/2017 Reji Landeros Weight 169.8 09/24/2017 Reji Landeros Height 61 09/24/2017 Reji Landeros Temperature Oral (F) 98.2 F 09/24/2017 Reji Landeros Heart Rate 74 09/24/2017 Reji Landeros Diastolic (mm Hg) 70 09/24/2017 Reji Landeros Systolic (mm Hg) 132 09/24/2017 Reji Landeros Weight 164 08/23/2017 Reji Landeros Height 60 08/23/2017 Reji Landeros Temperature Oral (F) 97.4 F 08/23/2017 Reji Landeros Heart Rate 72 08/23/2017 Reji Landeros Diastolic (mm Hg) 78 08/23/2017 Reji Landeros Systolic (mm Hg) 122 08/23/2017 Reji Landeros Weight 163.8 07/23/2017 Reji Landeros Height 60 07/23/2017 Reji Landeros Temperature Oral (F) 99.0 F 07/23/2017 Reji Landeros Heart Rate 60 07/23/2017 Reji Landeros Diastolic (mm Hg) 68 07/23/2017 Reji Landeros Systolic (mm Hg) 122 07/23/2017 Reji Landeros Weight 163.1 06/25/2017 Reji Landeros Height 61 06/25/2017 Reji Landeros Temperature Oral (F) 98.3 F 06/25/2017 Reji Landeros Heart Rate 80 06/25/2017 Reji Landeros Diastolic (mm Hg) 70 06/25/2017 Reji Landeros Systolic (mm Hg) 100 06/25/2017 Reji Landeros Weight 158 04/25/2017 Reji Landeros Height 60 04/25/2017 Reji Landeros Temperature Oral (F) 96.9 F 04/25/2017 Reji Landeros Heart Rate 68 04/25/2017 Reji Landeros Diastolic (mm Hg) 60 04/25/2017 Reji Landeros Systolic (mm Hg) 108 04/25/2017 Reji Landeros Weight 154.2 03/26/2017 Reji Landeros Height 60 03/26/2017 Reji Landeros Temperature Oral (F) 97.3 F 03/26/2017 Reji Landeros Heart Rate 68 03/26/2017 Reji Landeros Diastolic (mm Hg) 76 03/26/2017 Reji Landeros Systolic (mm Hg) 130 03/26/2017 Reji Landeros Weight 152 02/22/2017 Reji Landeros Height 60 02/22/2017 Reji Landeros Temperature Oral (F) 97.4 F 02/22/2017 Reji Landeros Heart Rate 72 02/22/2017 Reji Landeros Diastolic (mm Hg) 70 02/22/2017 Reji Landeros Systolic (mm Hg) 120 02/22/2017 Reji Landeros Weight 70.182 02/13/2017 [facility] BMI Calculated 29.4 02/13/2017 [facility] Systolic (mm Hg) 180 02/13/2017 [facility] Diastolic (mm Hg) 81 02/13/2017 [facility] Height 154.5 cm 02/13/2017 [facility] Temperature Oral (F) 99.2 F 02/13/2017 [facility] Respitory Rate 18 02/13/2017 [facility] Heart Rate 109 02/13/2017 [facility] Weight 150 01/23/2017 Reji Landeros Height 60 01/23/2017 Reji Landeros Temperature Oral (F) 98.2 F 01/23/2017 Reji Landeros Heart Rate 104 01/23/2017 Reji Landeros Diastolic (mm Hg) 60 01/23/2017 Reji Landeros Systolic (mm Hg) 110 01/23/2017 Reji Landeros Weight 159.5 12/21/2016 Reji Landeros Height 61 12/21/2016 Reji Landeros Temperature Oral (F) 98.6 F 12/21/2016 Reji Landeros Heart Rate 98 12/21/2016 Reji Landeros Diastolic (mm Hg) 80 12/21/2016 Reji Landeros Systolic (mm Hg) 122 12/21/2016 Rjei Landeros Weight 159 10/19/2016 Reji Landeros Height 61 10/19/2016 Reji Landeros Temperature Oral (F) 97.4 F 10/19/2016 Reji Landeros Heart Rate 68 10/19/2016 Reji Landeros Diastolic (mm Hg) 72 10/19/2016 Reji Landeros Systolic (mm Hg) 134 10/19/2016 Reji Landeros BMI Calculated 29.91 12/28/2015 [facility] Weight 76.591 12/28/2015 [facility] Systolic (mm Hg) 145 12/28/2015 [facility] Diastolic (mm Hg) 83 12/28/2015 [facility] Temperature Oral (F) 98.1 F 12/28/2015 [facility] Respitory Rate 18 12/28/2015 [facility] Heart Rate 89 12/28/2015 [facility] Height 160.02 cm 12/28/2015 [facility] Weight 81 12/29/2014 [facility] BMI Calculated 30.65 12/29/2014 [facility] Heart Rate 98 12/29/2014 [facility] Systolic (mm Hg) 131 12/29/2014 [facility] Diastolic (mm Hg) 78 12/29/2014 [facility] Height 162.56 cm 12/29/2014 [facility] Respitory Rate 18 12/29/2014 [facility] Temperature Oral (F) 98.1 F 12/29/2014 [facility] Respitory Rate 16 06/08/2014 [facility] Systolic (mm Hg) 159 06/08/2014 [facility] Diastolic (mm Hg) 89 06/08/2014 [facility] Temperature Oral (F) 98 F 06/08/2014 [facility] Heart Rate 70 06/08/2014 [facility] Weight 75.142 06/08/2014 [facility] BMI Calculated 28.44 06/08/2014 [facility] Height 162.56 cm 06/08/2014 [facility] Height 162.56 cm 12/29/2013 [facility] BMI Calculated 28.55 12/29/2013 [facility] Weight 75.455 12/29/2013 [facility] Diastolic (mm Hg) 59 12/29/2013 [facility] Temperature Oral (F) 97.3 F 12/29/2013 [facility] Respitory Rate 16 12/29/2013 [facility] Systolic (mm Hg) 89 12/29/2013 [facility] Heart Rate 77 12/29/2013 [facility] Diastolic (mm Hg) 75 12/15/2013 [facility] Temperature Oral (F) 98.5 F 12/15/2013 [facility] BMI Calculated 28.78 12/15/2013 [facility] Weight 76.051 12/15/2013 [facility] Respitory Rate 18 12/15/2013 [facility] Heart Rate 111 12/15/2013 [facility] Systolic (mm Hg) 133 12/15/2013 [facility] Height 162.56 cm 12/15/2013 [facility] Systolic (mm Hg) 121 12/07/2013 [facility] Diastolic (mm Hg) 64 12/07/2013 [facility] Diastolic (mm Hg) 78 12/07/2013 [facility] Systolic (mm Hg) 130 12/07/2013 [facility] Temperature Oral (F) 97.5 F 12/07/2013 [facility] Diastolic (mm Hg) 75 12/07/2013 [facility] Systolic (mm Hg) 138 12/07/2013 [facility] Temperature Oral (F) 97.7 F 12/07/2013 [facility] Temperature Oral (F) 99 F 12/07/2013 [facility] Respitory Rate 25 12/07/2013 [facility] Respitory Rate 23 12/07/2013 [facility] Respitory Rate 19 12/07/2013 [facility] Weight 80.455 12/05/2013 [facility] BMI Calculated 30.45 12/05/2013 [facility] Height 162.56 cm 12/05/2013 [facility] Height 162.56 cm 09/12/2013 [facility] BMI Calculated 29.24 09/12/2013 [facility] Weight 77.273 09/12/2013 [facility] Respitory Rate 16 09/04/2013 [facility] Temperature Oral (F) 98.2 F 09/04/2013 [facility] Heart Rate 92 09/04/2013 [facility] Weight 79.233 09/04/2013 [facility] Systolic (mm Hg) 107 09/04/2013 [facility] Diastolic (mm Hg) 68 09/04/2013 [facility] BMI Calculated 29.98 09/04/2013 [facility] Height 162.56 cm 09/04/2013 [facility] Encounters Location Location Details Encounter Type Encounter Number Reason For Visit Attending Provider ADM Date DC Date Status Source [facility] Outpatient [id number] Renny Benz 09/04/2013 09/05/2013 [facility] Outpatient [id number] Young Cox 09/12/2013 09/13/2013 [facility] [id number] Fernando Santos 12/04/2013 12/05/2013 [facility] Inpatient [id number] Ivet Newman 12/05/2013 12/07/2013 [facility] Outpatient [id number] Ivet Newman 12/15/2013 12/16/2013 [facility] Outpatient [id number] Ivet Newman 12/29/2013 12/30/2013 [facility] Sarah [facility] Out[facility] Di[facility] [id number] Ivet Newman 12/29/2013 12/30/2013 [facility] Outpatient [id number] Biswajit Trent 06/08/2014 06/09/2014 [facility] Outpatient [id number] Biswajit Trent 12/29/2014 12/30/2014 [facility] [id number] Biswajit Trent 12/29/2014 12/30/2014 [facility] Outpatient [id number] Biswajit Trent 12/28/2015 12/29/2015 [facility] [id number] Biswajit Trent 12/28/2015 12/29/2015 [facility] Outpatient [id number] Biswajit Trent 02/13/2017 02/14/2017 [facility] Outpatient [id number] Biswajit Trent 07/23/2018 07/24/2018 [facility] Procedures Procedure Code Date Perfomer Comments Source Percutaneous transfemoral insertion of aortic valve using fluoroscopic guidance [id number] 12/05/2013 [facility] Percutaneous transfemoral insertion of aortic valve using fluoroscopic guidance [id number] 12/05/2013 [facility] Sarah Ann Appendectomy [id number] [facility] Bilateral replacement of knee joints [id number] [facility] Cholecystectomy [id number] [facility] Sling procedure of bladder neck 92672980 [facility] Vaginal hysterectomy [id number] [facility] Appendectomy [id number] [facility] Bilateral replacement of knee joints [id number] [facility] Cholecystectomy [id number] [facility] Sling procedure of bladder neck [id number] [facility] Vaginal hysterectomy [id number] [facility]
--- OUTSIDE RECORDS SUMMARY | 2018-08-12 10:16 | XMS REPORT | Summary of Care ---
Author Author [facility] Organization [facility] Address Unknown Phone Unavailable Encounter MANDI Juarez(DEBBY) [id number] Date(s): 02/13/17 - 02/13/17 [facility] [address], [address] [place], [place] [address] Discharge Disposition: Home or Self Care Attending Physician: Ivet Newman MD Referring Physician: Ivet Newman MD Vital Signs Most recent to 1 oldest [Reference Range]: Height 154.5 cm (02/13/17 3:46 PM) Temperature Oral 99.2 DegF [96.4-99.1 DegF] *HI* (02/13/17 3:46 PM) Blood Pressure 180/81 mmHg [90-140/60-90 mmHg] *HI* (02/13/17 3:46 PM) Respiratory Rate 18 BRMIN [14-20 BRMIN] (02/13/17 3:46 PM) Peripheral Pulse 109 bpm Rate [60-100 bpm] *HI* (02/13/17 3:46 PM) Weight 70.182 kg (02/13/17 3:46 PM) Body Mass Index 29.4 m2 (02/13/17 3:46 PM) Problem List Condition Effective Dates Status [...]
--- OUTSIDE RECORDS SUMMARY | 2018-08-12 10:16 | XMS REPORT ---
Author Author Cassandra Orta Organization [employer] Address Unknown Phone Unavailable Care Team Providers Care Benefits Manager Name Role Phone Marivel Alexdeep CP Unavailable Allergies, Adverse Reactions, Alerts Substance Reaction Event Type N.K.D.A. Info Not Available Non Drug Allergy Problems Problem Type Condition Code Onset Dates Condition Status Assessment Polymyalgia rheumatica M35.3 Active Problem Polymyalgia rheumatica M35.3 Active Problem Other specified arthritis, multiple sites M13.89 Active Problem Age related osteoporosis M81.0 Active Problem Age-related osteoporosis with current pathological fracture, initial encounter M80.00XA Active Problem Vitamin D deficiency E55.9 Active Problem Fall from chair, initial encounter W07.XXXA Active Problem Osteoarthritis M19.90 Active Problem Chronic prescription opiate use Z79.891 Active Problem Special screening for osteoporosis Z13.820 Active Assessment Chronic prescription opiate use Z79.891 Active Assessment Other specified arthritis, multiple sites M13.89 Active Assessment Age-related osteoporosis with current pathological fracture, initial encounter M80.00XA Active Assessment Flu vaccine need Z23 Active Assessment Osteoarthritis M19.90 Active Medications Medication Code System Code Instructions Start Date End Date Status Dosage Crestor [facility] 46390479459 10 MG Orally Once a day Active 1 tablet Metformin HCl ND 59540258788 500 MG Orally Twice a day Active 1 tablet with meals Escitalopram Oxalate ND 27362944140 10 MG Orally Once a day Active 1 tablet Vitamin D (Ergocalciferol) ND 91724212503 34603 UNIT Orally once a week Jun 08, 2017 Active 1 capsule Lorazepam ND 42788916491 1 MG Orally once a day Active 1 tablet as needed PredniSONE ND 40113992042 5mg once a day prn Active TAKE 2 TABLETS BY MOUTH DAILY NEEDED Tizanidine HCl ND 94013988552 4 MG Orally bid Active 1 tablet as needed Prolia ND 73079291420 60 MG/ML Subcutaneous every 6 months Mar 26, 2017 Active as directed Hydrocodone-Acetaminophen ND 80005686873 10-325 MG Orally every 6 hrs Active 1 tablet as needed Pantoprazole Sodium [facility] 68542237036 40 MG Orally Before each meal and then before bed Active 1 tablet Trazodone HCl [facility] 56454659446 50 MG Orally Once a day Active 1 tablet at bedtime as needed Vital Signs Date/Time: Mar 26, 2017 BMI 30.11 Index Weight 154.2 lbs Height 60 in Temperature 97.3 F Cardiac Monitoring Heart Rate 68 /min Blood Pressure Diastolic 76 mm Hg Blood Pressure Systolic 130 mm Hg Results No Known Results Immunizations Vaccine Administration Date Flu Vaccine Mar 26, 2017 Summary Purpose [employer] Submission
--- OUTSIDE RECORDS SUMMARY | 2018-08-12 10:16 | XMS REPORT | Summary of Care ---
Author Organization Unknown Address Unknown Phone Unavailable Encounter MANDI Juarez(DEBBY) [id number] Date(s): 09/12/13 - 09/12/[address] Discharge Disposition: Home Physician Attending: Young Cox MD Physician_Referring: Young Cox MD Reason for Visit AVB,SOB,CLP,PULM HTN Vital Signs Most recent to 1 oldest [Reference Range]: Height 162.56 cm (09/12/13 4:49 PM) Weight 77.273 kg (09/12/13 4:49 PM) Body Mass Index 29.24 m2 (09/12/13 4:49 PM) Problem List No data available for this section Allergies, Adverse Reactions, Alerts Substance Reaction Severity Status NKDA Active Medications No data available for this section Results CHEM PANEL Most recent to 1 oldest [Reference Range]: eGFR 75 mL/min/1.73m2 1 *NA* (09/12/13 10:24 AM) POC Creatinine 0.8 mg/dL [0.5-1.4 mg/dL] (09/12/13 10:24 AM) 1Result Comment: The eGFR is calculated using [...] from the National Kidney Disease Education Program ( NKDEP) which additionally recommends that when the eGFR is used in patients with extremes of body mass index for purposes of drug dosing, the eGFR should be mul tiplied by the estimated BMI. Medications Administered During Your Visit No data available for this section Immunizations No data available for this section
--- OUTSIDE RECORDS SUMMARY | 2018-08-12 10:16 | XMS REPORT | Summary of Care ---
Author Organization Unknown Address Unknown Phone Unavailable Encounter MANDI Juarez(DEBBY) [id number] Date(s): 09/04/13 - 09/04/[address] Discharge Disposition: Home Physician Attending: Renny Benz Physician_Referring: Renny Benz Reason for Visit INTIAL CONSULT Vital Signs Most recent to 1 oldest [Reference Range]: Height 162.56 cm (09/04/13 3:31 PM) Temperature Oral 98.2 DegF [96.4-99.1 DegF] (09/04/13 3:31 PM) Systolic Blood 107 mmHg Pressure [90-140 (09/04/13 3:31 PM) mmHg] Diastolic Blood 68 mmHg Pressure [60-90 (09/04/13 3:31 PM) mmHg] Respiratory Rate 16 BRMIN [14-20 BRMIN] (09/04/13 3:31 PM) Peripheral Pulse 92 bpm Rate [60-100 bpm] (09/04/13 3:31 PM) Weight 79.233 kg (09/04/13 3:31 PM) Body Mass Index 29.98 m2 (09/04/13 3:31 PM) Problem List No data available for this section Allergies, Adverse Reactions, Alerts Substance Reaction Severity Status NKDA Active Medications Ambien 5 mg oral tablet 5 mg=1 tab, PO, Bedtime, for sleep, prn, 0 Refill(s) Special Instructions: prn Start Date: 09/04/13 Status: Ordered fentaNYL 25 mcg/hr transdermal film, extended release 1 patch, TOP, PRN, 0 Refill(s) Start Date: 09/04/13 Status: Ordered LORazepam 1 mg oral tablet 1 mg=1 tab, PO, Daily, Anxiety, prn, # 20 tab, 0 Refill(s) Special Instructions: prn Start Date: 09/04/13 Status: Ordered Zoloft 100 mg oral tablet 100 mg=1 tab, PO, Daily, # 30 tab, 0 Refill(s) Start Date: 09/04/13 Status: Ordered Medications Administered During Your Visit No data available for this section Immunizations No data available for this section
--- OUTSIDE RECORDS SUMMARY | 2018-08-12 10:16 | XMS REPORT | Summary of Care ---
Author Author [facility] Organization [facility] Address Unknown Phone Unavailable Encounter MANDI Juarez(DEBBY) [id number] Date(s): 07/23/18 - 07/23/[address] [facility] [address], [address] Discharge Disposition: Home or Self Care Attending Physician: Ivet Newman MD Referring Physician: Ivet Newman MD Vital Signs Most recent to 1 oldest [Reference Range]: Height 152.4 cm (07/23/18 9:51 AM) Temperature Oral 98.6 DegF [96.4-99.1 DegF] (07/23/18 9:51 AM) Blood Pressure 133/81 mmHg [90-140/60-90 mmHg] (07/23/18 9:51 AM) Respiratory Rate 16 BRMIN [14-20 BRMIN] (07/23/18 9:51 AM) Peripheral Pulse 97 bpm Rate [60-100 bpm] (07/23/18 9:51 AM) Weight 72.273 kg (07/23/18 9:51 AM) Body Mass Index 31.12 m2 (07/23/18 9:51 AM) Problem List Condition Effective Dates Status Health Status Informant Angina(Confirmed) Resolved Aortic Active stenosis(Confirmed) CHF - Congestive Active heart failure(Confirmed) DM (diabetes Active mellitus)(Confirmed) Pulmonary Active HTN(Confirmed) Allergies, Adverse Reactions, Alerts Substance Reaction Severity Status NKDA Active Medications Toprol-XL 25 mg oral tablet, extended release 25 mg=1 tab, PO, Daily, # 30 tab, 6 Refill(s), Pharmacy: [phone] Start Date: 07/23/18 Status: Ordered Results No data available for this section Immunizations No data available for this section Procedures Procedure Date Related Diagnosis Body Site Status Percutaneous transfemoral insertion of aortic 12/05/13 Completed valve using fluoroscopic guidance Appendectomy Completed Bilateral replacement of knee joints Completed Cholecystectomy Completed Sling procedure of bladder neck Completed Vaginal hysterectomy Completed Social History Social History Type Response Smoking Status Never smoker; Exposure to Tobacco Smoke None; Cigarette Smoking Last 365 Days No; Reg Smoking Cessation Counseling No entered on: 07/23/18 Assessment and Plan No data available for this section
--- OUTSIDE RECORDS SUMMARY | 2018-08-12 10:16 | XMS REPORT | Summary of Care ---
Author Author [facility] [place] Organization [facility] Address Unknown Phone Unavailable Encounter HQ Nakiar_obdulia(FIN) [id number] Date(s): 12/29/14 - 12/29/14 [facility] [place] [address] [place] [phone] Discharge Disposition: Home Attending Physician: Ivet Newman MD Vital Signs No data available for this section Problem List Condition Effective Dates Status Health Status Informant Angina(Confirmed) Resolved Aortic Active stenosis(Confirmed) CHF - Congestive Active heart failure(Confirmed) DM (diabetes Active mellitus)(Confirmed) Pulmonary Active HTN(Confirmed) Allergies, Adverse Reactions, Alerts Substance Reaction Severity Status NKDA Active Medications No data available for this section Results No data available for this section [...]
--- OUTSIDE RECORDS SUMMARY | 2018-08-12 10:16 | XMS REPORT | Summary of Care ---
Author Organization Unknown Address Unknown Phone Unavailable Encounter MANDI Juarez(DEBBY) [phone] Date(s): 12/15/13 - 12/15/[address] Discharge Disposition: Home Physician Attending: Ivet Newman MD Physician_Referring: Ivet Newman MD Reason for Visit HOSPITAL FOLLOW UP Vital Signs Most recent to 1 oldest [Reference Range]: Height 162.56 cm (12/15/13 1:30 PM) Temperature Oral 98.5 DegF [96.4-99.1 DegF] (12/15/13 1:30 PM) Systolic Blood 133 mmHg Pressure [90-140 (12/15/13 1:30 PM) mmHg] Diastolic Blood 75 mmHg Pressure [60-90 (12/15/13 1:30 PM) mmHg] Respiratory Rate 18 BRMIN [14-20 BRMIN] (12/15/13 1:30 PM) Peripheral Pulse 111 bpm Rate [60-100 bpm] *HI* (12/15/13 1:30 PM) Weight 76.051 kg (12/15/13 1:30 PM) Body Mass Index 28.78 m2 (12/15/13 1:30 PM) Problem List Condition Effective Dates Status Health Status Informant Angina(Confirmed) Resolved Aortic Active stenosis(Confirmed) CHF - Congestive Active heart failure(Confirmed) DM (diabetes Active mellitus)(Confirmed) Pulmonary Active HTN(Confirmed) Allergies, Adverse Reactions, Alerts Substance Reaction Severity Status NKDA Active Medications Ambien 5 mg oral tablet 5 mg=1 tab, PO, Bedtime, for sleep, PRN sleep, 0 Refill(s) Special Instructions: PRN sleep Start Date: 12/15/13 Status: Ordered LORazepam 1 mg oral tablet 1 mg=1 tab, PO, BID, Anxiety, PRN, # 20 tab, 0 Refill(s) Special Instructions: PRN Start Date: 12/15/13 Status: Ordered Medications Administered During Your Visit No data available for this section Immunizations No data available for this section Procedures Procedure Type Body Site Date of Procedure Related Diagnosis Percutaneous transfemoral 12/05/13 12:00 AM insertion of aortic valve using fluoroscopic guidance Social History Social History Type Response Smoking Status Never smoker, Exposure to Tobacco Smoke None, Cigarette Smoking Last 365 Days No, Reg Smoking Cessation Counseling No
--- OUTSIDE RECORDS SUMMARY | 2018-08-12 10:16 | XMS REPORT | Summary of Care ---
Author Organization Unknown Address Unknown Phone Unavailable Encounter HQ Larry(DEBBY) [id number] Date(s): 12/05/13 - 12/07/13 [facility] [address] Discharge Disposition: Home Physician Attending: Ivet Newman MD Physician Admitting: Ivet Newman MD Physician_Referring: Ivet Newman MD Reason for Visit AORTIC STENOSIS, SOB Vital Signs 1 2 3 Most recent to oldest [Reference Range]: 162.56 cm (12/05/13 6:24 AM) Height 75.4 kg (12/06/13 3:35 PM) Current Weight 97.5 DegF (12/07/13 11:12 AM) 97.7 DegF (12/07/13 7:38 AM) 99 DegF (12/07/13 12:00 AM) Temperature Oral [96.4-99.1 DegF] 121 mmHg (12/07/13 1:00 PM) 130 mmHg (12/07/13 11:12 AM) 138 mmHg (12/07/13 9:30 AM) Systolic Blood Pressure [90-140 mmHg] 64 mmHg (12/07/13 1:00 PM) 78 mmHg (12/07/13 11:12 AM) 75 mmHg (12/07/13 9:30 AM) Diastolic Blood Pressure [60-90 mmHg] 25 BRMIN *HI* (12/06/13 10:00 PM) 23 BRMIN *HI* (12/06/13 9:00 PM) 19 BRMIN (12/06/13 8:00 PM) Respiratory Rate [14-20 BRMIN] 80.455 kg (12/05/13 6:24 AM) Weight 30.45 m2 (12/05/13 6:24 AM) Body Mass Index Problem List Condition Effective Dates Status Health Status Informant Angina(Confirmed) Resolved Aortic Active stenosis(Confirmed) CHF - Congestive Active heart failure(Confirmed) DM (diabetes Active mellitus)(Confirmed) Pulmonary Active HTN(Confirmed) Allergies, Adverse Reactions, Alerts Substance Reaction Severity Status NKDA Active Medications acetaminophen 325 mg oral tablet 650 mg, 2 tab, Route: PO, Drug form: TAB, Q4H, Dosing Weight 80.455, kg, PRN as needed for pain, Start date: 12/06/13 5:14:00, Duration: 30 day, Stop date: 12/19 01/01 5:13:00 Notes: Do not exceed 4 gm/day. (Same as: Tylenol) Start Date: 12/06/13 Stop Date: 12/07/13 Status: Discontinued acetaminophen-10 mg/mL INTRAVENOUS solution 1,000 mg, 100 mL, Route: IV, Drug form: INJ, ONCE, Dosing Weight 80.455, kg, PRN Pain, For > or=50 kg, Start date: 12/05/13 22:32:00 Notes: Infuse over 15 minutes Do not exceed 4gm/day of acetaminophen Start Date: 12/05/13 Stop Date: 12/05/13 Status: Completed aspirin 81 mg tablet, enteric coated 81 mg, 1 tab, Route: PO, Drug form: ECTAB, Daily, Dosing Weight 80.455, kg, Star t date: 12/06/13 9:00:00, Duration: 30 day, Stop date: 01/04/14 9:00:00 Notes: Do not crush or chew.(Same As: Ecotrin) Start Date: 12/06/13 Stop Date: 12/07/13 Status: Discontinued aspirin 81 mg tablet, enteric coated 81 mg=1 tab, PO, Daily, # 100 tab, 3 Refill(s) Start Date: 12/07/13 Status: Ordered calcium carbonate 500 mg (200 mg elemental calcium) oral tablet 1,000 mg, 2 tab, Route: PO, Drug form: CHEWTAB, PRN, Dosing Weight 80.455, kg, P RN Abnormal Lab Result, FOR ICU USE ONLY, Start date: 12/05/13 13:06:00, Rodrigue n: 30 day, Stop date: 01/04/14 13:05:00 Notes: (Same As: Tums)Calcium Carbonate 500 er=672 mg elemental calcium Dose=_ mg calcium carbonate ( mg elemental calcium) Start Date: 12/05/13 Stop Date: 12/05/13 Status: Discontinued calcium carbonate 500 mg (200 mg elemental calcium) oral tablet 500 mg, 1 tab, Route: PO, Drug form: CHEWTAB, PRN, Dosing Weight 80.455, kg, PRN Abnormal Lab Result, FOR ICU USE ONLY, Start date: 12/05/13 13:06:00, Duration: 30 day, Stop date: 01/04/14 13:05:00 Notes: (Same As: Tums)Calcium Carbonate 500 fu=105 mg elemental calcium Dose=_ mg calcium carbonate ( mg elemental calcium) Start Date: 12/05/13 Stop Date: 12/05/13 Status: Discontinued calcium carbonate 500 mg (200 mg elemental calcium) oral tablet 500 mg, 1 tab, Route: PO, Drug form: CHEWTAB, PRN, Dosing Weight 80.455, kg, PRN Abnormal Lab Result, FOR ICU USE ONLY, Start date: 12/05/13 13:29:00, Duration: 30 day, Stop date: 01/04/14 13:28:00 Notes: (Same As: Tums)Calcium Carbonate 500 ms=040 mg elemental calcium Dose=_ mg calcium carbonate ( mg elemental calcium) Start Date: 12/05/13 Stop Date: 12/07/13 Status: Discontinued calcium carbonate 500 mg (200 mg elemental calcium) oral tablet 1,000 mg, 2 tab, Route: PO, Drug form: CHEWTAB, PRN, Dosing Weight 80.455, kg, P RN Abnormal Lab Result, FOR ICU USE ONLY, Start date: 12/05/13 13:29:00, Kirktio n: 30 day, Stop date: 01/04/14 13:28:00 Notes: (Same As: Tums)Calcium Carbonate 500 rt=198 mg elemental calcium Dose=_ mg calcium carbonate ( mg elemental calcium) Start Date: 12/05/13 Stop Date: 12/07/13 Status: Discontinued calcium gluconate + Sodium Chloride 0.9% IV 50 mL 1 gm, 10 mL, Route: IVPB, PRN, Dosing Weight 80.455, kg, PRN Abnormal Lab Result , Start date: 12/05/13 13:06:00, Duration: 30 day, Stop date: 01/04/14 13:05:00, FOR ICU USE ONLY Special Instructions: FOR ICU USE ONLY Start Date: 12/05/13 Stop Date: 12/05/13 Status: Discontinued calcium gluconate + Sodium Chloride 0.9% IV 50 mL 1 gm, 10 mL, Route: IVPB, PRN, Dosing Weight 80.455, kg, PRN Abnormal Lab Result , Start date: 12/05/13 13:29:00, Duration: 30 day, Stop date: 01/04/14 13:28:00, FOR ICU USE ONLY Special Instructions: FOR ICU USE ONLY Start Date: 12/05/13 Stop Date: 12/07/13 Status: Discontinued clopidogrel 75 mg, 1 tab, Route: PO, Drug form: TAB, Daily, Dosing Weight 80.455, kg, Start date: 12/06/13 9:00:00, Duration: 30 day, Stop date: 01/04/14 9:00:00 Notes: (Same As: Plavix) Start Date: 12/06/13 Stop Date: 12/07/13 Status: Discontinued clopidogrel 75 mg oral tablet 75 mg=1 tab, PO, Daily, # 30 tab, 6 Refill(s) Start Date: 12/07/13 Status: Ordered fentaNYL 25 microgram, Route: IV, QID, Dosing Weight 80.455, kg, Start date: 12/05/13 17: 00:00, Duration: 30 day, Stop date: 01/04/14 13:00:00 Start Date: 12/05/13 Stop Date: 12/05/13 Status: Canceled fentaNYL 50 microgram, 1 mL, Route: IV, Drug form: INJ, Q4H, Dosing Weight 80.455, kg, OR N Pain, Start date: 12/05/13 11:50:00, Duration: 30 day, Stop date: 01/04/14 11: 49:00 Notes: (Same as: Sublimaze) Preservative free. Start Date: 12/05/13 Stop Date: 12/07/13 Status: Discontinued heparin 5,000 unit, Route: SUB-Q, Q12H, Dosing Weight 80.455, kg, Start date: 12/05/13 2 1:00:00, Duration: 30 day, Stop date: 01/04/14 9:00:00 Start Date: 12/05/13 Stop Date: 12/05/13 Status: Canceled hydrALAZINE 10 mg, 0.5 mL, Route: IV, Drug form: INJ, Q6H, Dosing Weight 80.455, kg, PRN Hyp ertension, Start date: 12/05/13 12:29:00, Duration: 30 day, Stop date: 01/04/14 12:28:00 Notes: (Same as: Apresoline)Push over 5 minutes Start Date: 12/05/13 Stop Date: 12/07/13 Status: Discontinued Insulin regular 5 unit, 0.05 mL, Route: SUB-Q, Drug form: SOLN, TID-Before Meals, Dosing Weight 80.455, kg, PRN Blood Glucose Results, Start date: 12/05/13 13:29:00, Duration: 30 day, Stop date: 01/04/14 13:28:00 Notes: (Same as: Humulin R) Roll in palms of hands gently; Do not shake vigorou sly. "single patient use only"(Restricted to patients requiring a dose > 60 units) Stable for 28 days at room temperatureExpires in days from _ Date Start Date: 12/05/13 Stop Date: 12/07/13 Status: Discontinued Insulin regular 4 unit, 0.04 mL, Route: SUB-Q, Drug form: SOLN, TID-Before Meals, Dosing Weight 80.455, kg, PRN Blood Glucose Results, Start date: 12/05/13 13:29:00, Duration: 30 day, Stop date: 01/04/14 13:28:00 Notes: (Same as: Humulin R) Roll in palms of hands gently; Do not shake vigorou sly. "single patient use only"(Restricted to patients requiring a dose > 60 units) Stable for 28 days at room temperatureExpires in days from _ Date Start Date: 12/05/13 Stop Date: 12/07/13 Status: Discontinued Insulin regular 3 unit, 0.03 mL, Route: SUB-Q, Drug form: SOLN, TID-Before Meals, Dosing Weight 80.455, kg, PRN Blood Glucose Results, Start date: 12/05/13 13:29:00, Duration: 30 day, Stop date: 01/04/14 13:28:00 Notes: (Same as: Humulin R) Roll in palms of hands gently; Do not shake vigorou sly. "single patient use only"(Restricted to patients requiring a dose > 60 units) Stable for 28 days at room temperatureExpires in days from _ Date Start Date: 12/05/13 Stop Date: 12/07/13 Status: Discontinued Insulin regular 2 unit, 0.02 mL, Route: SUB-Q, Drug form: SOLN, TID-Before Meals, Dosing Weight 80.455, kg, PRN Blood Glucose Results, Start date: 12/05/13 13:29:00, Duration: 30 day, Stop date: 01/04/14 13:28:00 Notes: (Same as: Humulin R) Roll in palms of hands gently; Do not shake vigorou sly. "single patient use only"(Restricted to patients requiring a dose > 60 units) Stable for 28 days at room temperatureExpires in days from _ Date Start Date: 12/05/13 Stop Date: 12/07/13 Status: Discontinued Insulin regular 1 unit, 0.01 mL, Route: SUB-Q, Drug form: SOLN, TID-Before Meals, Dosing Weight 80.455, kg, PRN Blood Glucose Results, Start date: 12/05/13 13:29:00, Duration: 30 day, Stop date: 01/04/14 13:28:00 Notes: (Same as: Humulin R) Roll in palms of hands gently; Do not shake vigorou sly. "single patient use only"(Restricted to patients requiring a dose > 60 units) Stable for 28 days at room temperatureExpires in days from _ Date Start Date: 12/05/13 Stop Date: 12/07/13 Status: Discontinued lisinopril 5 mg, 1 tab, Route: PO, Drug form: TAB, Daily, Dosing Weight 80.455, kg, Start d ate: 12/07/13 9:00:00, Duration: 30 day, Stop date: 01/05/14 9:00:00 Notes: (Same as: Prinivil, Zestril) Start Date: 12/07/13 Stop Date: 12/07/13 Status: Discontinued lisinopril 5 mg oral tablet 5 mg=1 tab, PO, Daily, # 30 tab, 3 Refill(s) Start Date: 12/07/13 Status: Ordered magnesium oxide 800 mg, 2 tab, Route: PO, Drug form: TAB, PRN, Dosing Weight 80.455, kg, PRN Abn ormal Lab Result, FOR ICU USE ONLY, Start date: 12/05/13 13:06:00, Duration: 30 day, Stop date: 01/04/14 13:05:00 Notes: (Same as: Mag-Ox 400)Magnesium oxide [id number] elemental magnesiumDose= ____mg magnesium oxide (___mg elemental magnesium) Start Date: 12/05/13 Stop Date: 12/05/13 Status: Discontinued magnesium oxide 800 mg, 2 tab, Route: PO, Drug form: TAB, PRN, Dosing Weight 80.455, kg, PRN Abn ormal Lab Result, FOR ICU USE ONLY, Start date: 12/05/13 13:29:00, Duration: 30 day, Stop date: 01/04/14 13:28:00 Notes: (Same as: Mag-Ox 400)Magnesium oxide [id number] elemental magnesiumDose= ____mg magnesium oxide (___mg elemental magnesium) Start Date: 12/05/13 Stop Date: 12/07/13 Status: Discontinued magnesium sulfate 2 gm, 50 mL, Route: IVPB, Drug form: INJ, PRN, Dosing Weight 80.455, kg, PRN Abn ormal Lab Result, Start date: 12/05/13 13:06:00, Duration: 30 day, Stop date: 13:05:00, FOR ICU USE ONLY Special Instructions: FOR ICU USE ONLY Start Date: 12/05/13 Stop Date: 12/05/13 Status: Discontinued magnesium sulfate 2 gm, 50 mL, Route: IVPB, Drug form: INJ, PRN, Dosing Weight 80.455, kg, PRN Abn ormal Lab Result, Start date: 12/05/13 13:29:00, Duration: 30 day, Stop date: 13:28:00, FOR ICU USE ONLY Special Instructions: FOR ICU USE ONLY Start Date: 12/05/13 Stop Date: 12/07/13 Status: Discontinued Neutra-Phos 2 pkt, Route: PO, Drug Form: PDR/REC, Dosing Weight 80.455, kg, PRN, PRN Abnorma l Lab Result, FOR ICU USE ONLY, Start date: 12/05/13 13:06:00, Duration: 30 day, Stop date: 01/04/14 13:05:00 Notes: (Same as: Neutra-Phos) Each 1.25 gm pkt has 250mg phosphorous. Mix w/2.5 oz water and stir. Start Date: 12/05/13 Stop Date: 12/05/13 Status: Discontinued Neutra-Phos 2 pkt, Route: PO, Drug Form: PDR/REC, Dosing Weight 80.455, kg, PRN, PRN Abnorma l Lab Result, FOR ICU USE ONLY, Start date: 12/05/13 13:29:00, Duration: 30 day, Stop date: 01/04/14 13:28:00 Notes: (Same as: Neutra-Phos) Each 1.25 gm pkt has 250mg phosphorous. Mix w/2.5 oz water and stir. Start Date: 12/05/13 Stop Date: 12/07/13 Status: Discontinued NexIUM 20 mg oral delayed release capsule 20 mg=1 cap, PO, Daily, # 90 cap, 0 Refill(s) Start Date: 12/05/13 Status: Ordered pantoprazole 40 mg, 1 tab, Route: PO, Drug form: ECTAB, Daily, Dosing Weight 80.455, kg, Star t date: 12/06/13 9:00:00, Duration: 30 day, Stop date: 01/04/14 9:00:00 Notes: Tablet should not be chewed or crushed.(Same as: Protonix) Start Date: 12/06/13 Stop Date: 12/07/13 Status: Discontinued potassium chloride 20 mEq, 100 mL, Route: IVPB, Drug form: INJ, PRN, Dosing Weight 80.455, kg, PRN Abnormal Lab Result, Via central line, Start date: 12/05/13 13:06:00, Duration: 30 day, Stop date: 01/04/14 13:05:00, FOR ICU USE ONLY Special Instructions: FOR ICU USE ONLY Notes: (Same as: KCL) Infuse no faster than 10 mEq/hr if given peripherally. Start Date: 12/05/13 Stop Date: 12/05/13 Status: Discontinued potassium chloride 20 mEq, 1 tab, Route: PO, Drug form: ERTAB, PRN, Dosing Weight 80.455, kg, PRN A bnormal Lab Result, Start date: 12/05/13 13:06:00, Duration: 30 day, Stop date: 01/04/14 13:05:00, FOR ICU USE ONLY Special Instructions: FOR ICU USE ONLY Notes: (Same as: K-Dur 20)"Do Not Crush" With food and full glass of water Start Date: 12/05/13 Stop Date: 12/05/13 Status: Discontinued potassium chloride 10 mEq, 50 mL, Route: IVPB, Drug form: INJ, PRN, Dosing Weight 80.455, kg, PRN A bnormal Lab Result, Via peripheral line, Start date: 12/05/13 13:06:00, Duration : 30 day, Stop date: 01/04/14 13:05:00, FOR ICU USE ONLY Special Instructions: FOR ICU USE ONLY Notes: (Same as: KCL) Infuse over 2 hours. Start Date: 12/05/13 Stop Date: 12/05/13 Status: Discontinued potassium chloride 20 mEq, 15 mL, Route: NJ, Drug form: LIQ, PRN, Dosing Weight 80.455, kg, PRN Abn ormal Lab Result, Start date: 12/05/13 13:06:00, Duration: 30 day, Stop date: 13:05:00, FOR ICU USE ONLY Special Instructions: FOR ICU USE ONLY Notes: (Same as: Potassium Chloride) Start Date: 12/05/13 Stop Date: 12/05/13 Status: Discontinued potassium chloride 20 mEq, 15 mL, Route: NJ, Drug form: LIQ, PRN, Dosing Weight 80.455, kg, PRN Abn ormal Lab Result, Start date: 12/05/13 13:29:00, Duration: 30 day, Stop date: 13:28:00, FOR ICU USE ONLY Special Instructions: FOR ICU USE ONLY Notes: (Same as: Potassium Chloride) Start Date: 12/05/13 Stop Date: 12/07/13 Status: Discontinued potassium chloride 20 mEq, 1 tab, Route: PO, Drug form: ERTAB, PRN, Dosing Weight 80.455, kg, PRN A bnormal Lab Result, Start date: 12/05/13 13:29:00, Duration: 30 day, Stop date: 01/04/14 13:28:00, FOR ICU USE ONLY Special Instructions: FOR ICU USE ONLY Notes: (Same as: K-Dur 20)"Do Not Crush" With food and full glass of water Start Date: 12/05/13 Stop Date: 12/07/13 Status: Discontinued potassium chloride 10 mEq, 50 mL, Route: IVPB, Drug form: INJ, PRN, Dosing Weight 80.455, kg, PRN A bnormal Lab Result, Via peripheral line, Start date: 12/05/13 13:29:00, Duration : 30 day, Stop date: 01/04/14 13:28:00, FOR ICU USE ONLY Special Instructions: FOR ICU USE ONLY Notes: (Same as: KCL) Infuse over 2 hours. Start Date: 12/05/13 Stop Date: 12/07/13 Status: Discontinued potassium chloride 20 mEq, 100 mL, Route: IVPB, Drug form: INJ, PRN, Dosing Weight 80.455, kg, PRN Abnormal Lab Result, Via central line, Start date: 12/05/13 13:29:00, Duration: 30 day, Stop date: 01/04/14 13:28:00, FOR ICU USE ONLY Special Instructions: FOR ICU USE ONLY Notes: (Same as: KCL) Infuse no faster than 10 mEq/hr if given peripherally. Start Date: 12/05/13 Stop Date: 12/07/13 Status: Discontinued potassium phosphate + Sodium Chloride 0.9% IV 250 mL 15 mmol, 5 mL, Route: IVPB, PRN, Dosing Weight 80.455, kg, PRN Abnormal Lab Resu lt, Start date: 12/05/13 13:06:00, Duration: 30 day, Stop date: 01/04/14 13:05:0 0, FOR ICU USE ONLY Special Instructions: FOR ICU USE ONLY Notes: (Same as: K Phosphate.) 1 mMol phoshate has 1.47 mEq potassium Infuse o greyson 4 hours Start Date: 12/05/13 Stop Date: 12/05/13 Status: Discontinued potassium phosphate + Sodium Chloride 0.9% IV 250 mL 30 mmol, 10 mL, Route: IVPB, PRN, Dosing Weight 80.455, kg, PRN Abnormal Lab Res ult, Start date: 12/05/13 13:06:00, Duration: 30 day, Stop date: 01/04/14 13:05: 00, FOR ICU USE ONLY Special Instructions: FOR ICU USE ONLY Notes: (Same as: K Phosphate.) 1 mMol phoshate has 1.47 mEq potassium Infuse o greyson 4 hours Start Date: 12/05/13 Stop Date: 12/05/13 Status: Discontinued potassium phosphate + Sodium Chloride 0.9% IV 250 mL 45 mmol, 15 mL, Route: IVPB, PRN, Dosing Weight 80.455, kg, PRN Abnormal Lab Res ult, Start date: 12/05/13 13:06:00, Duration: 30 day, Stop date: 01/04/14 13:05: 00, FOR ICU USE ONLY Special Instructions: FOR ICU USE ONLY Notes: (Same as: K Phosphate.) 1 mMol phoshate has 1.47 mEq potassium Infuse o greyson 4 hours Start Date: 12/05/13 Stop Date: 12/05/13 Status: Discontinued potassium phosphate + Sodium Chloride 0.9% IV 250 mL 30 mmol, 10 mL, Route: IVPB, PRN, Dosing Weight 80.455, kg, PRN Abnormal Lab Res ult, Start date: 12/05/13 13:29:00, Duration: 30 day, Stop date: 01/04/14 13:28: 00, FOR ICU USE ONLY Special Instructions: FOR ICU USE ONLY Notes: (Same as: K Phosphate.) 1 mMol phoshate has 1.47 mEq potassium Infuse o greyson 4 hours Start Date: 12/05/13 Stop Date: 12/07/13 Status: Discontinued potassium phosphate + Sodium Chloride 0.9% IV 250 mL 15 mmol, 5 mL, Route: IVPB, PRN, Dosing Weight 80.455, kg, PRN Abnormal Lab Resu lt, Start date: 12/05/13 13:29:00, Duration: 30 day, Stop date: 01/04/14 13:28:0 0, FOR ICU USE ONLY Special Instructions: FOR ICU USE ONLY Notes: (Same as: K Phosphate.) 1 mMol phoshate has 1.47 mEq potassium Infuse o greyson 4 hours Start Date: 12/05/13 Stop Date: 12/07/13 Status: Discontinued potassium phosphate + Sodium Chloride 0.9% IV 250 mL 45 mmol, 15 mL, Route: IVPB, PRN, Dosing Weight 80.455, kg, PRN Abnormal Lab Res ult, Start date: 12/05/13 13:29:00, Duration: 30 day, Stop date: 01/04/14 13:28: 00, FOR ICU USE ONLY Special Instructions: FOR ICU USE ONLY Notes: (Same as: K Phosphate.) 1 mMol phoshate has 1.47 mEq potassium Infuse o greyson 4 hours Start Date: 12/05/13 Stop Date: 12/07/13 Status: Discontinued sodium phosphate + Sodium Chloride 0.9% IV 250 mL 30 mmol, 10 mL, Route: IVPB, PRN, Dosing Weight 80.455, kg, PRN Abnormal Lab Res ult, Start date: 12/05/13 13:06:00, Duration: 30 day, Stop date: 01/04/14 13:05: 00, FOR ICU USE ONLY Special Instructions: FOR ICU USE ONLY Start Date: 12/05/13 Stop Date: 12/05/13 Status: Discontinued sodium phosphate + Sodium Chloride 0.9% IV 250 mL 45 mmol, 15 mL, Route: IVPB, PRN, Dosing Weight 80.455, kg, PRN Abnormal Lab Res ult, Start date: 12/05/13 13:06:00, Duration: 30 day, Stop date: 01/04/14 13:05: 00, FOR ICU USE ONLY Special Instructions: FOR ICU USE ONLY Start Date: 12/05/13 Stop Date: 12/05/13 Status: Discontinued sodium phosphate + Sodium Chloride 0.9% IV 250 mL 15 mmol, 5 mL, Route: IVPB, PRN, Dosing Weight 80.455, kg, PRN Abnormal Lab Resu lt, Start date: 12/05/13 13:06:00, Duration: 30 day, Stop date: 01/04/14 13:05:0 0, FOR ICU USE ONLY Special Instructions: FOR ICU USE ONLY Start Date: 12/05/13 Stop Date: 12/05/13 Status: Discontinued sodium phosphate + Sodium Chloride 0.9% IV 250 mL 30 mmol, 10 mL, Route: IVPB, PRN, Dosing Weight 80.455, kg, PRN Abnormal Lab Res ult, Start date: 12/05/13 13:29:00, Duration: 30 day, Stop date: 01/04/14 13:28: 00, FOR ICU USE ONLY Special Instructions: FOR ICU USE ONLY Start Date: 12/05/13 Stop Date: 12/07/13 Status: Discontinued sodium phosphate + Sodium Chloride 0.9% IV 250 mL 15 mmol, 5 mL, Route: IVPB, PRN, Dosing Weight 80.455, kg, PRN Abnormal Lab Resu lt, Start date: 12/05/13 13:29:00, Duration: 30 day, Stop date: 01/04/14 13:28:0 0, FOR ICU USE ONLY Special Instructions: FOR ICU USE ONLY Start Date: 12/05/13 Stop Date: 12/07/13 Status: Discontinued sodium phosphate + Sodium Chloride 0.9% IV 250 mL 45 mmol, 15 mL, Route: IVPB, PRN, Dosing Weight 80.455, kg, PRN Abnormal Lab Res ult, Start date: 12/05/13 13:29:00, Duration: 30 day, Stop date: 01/04/14 13:28: 00, FOR ICU USE ONLY Special Instructions: FOR ICU USE ONLY Start Date: 12/05/13 Stop Date: 12/07/13 Status: Discontinued tramadol 50 mg oral tablet 50 mg, 1 tab, Route: PO, Drug form: TAB, Q6H, Dosing Weight 80.455, kg, PRN as n eeded for pain, Start date: 12/05/13 16:52:00, Duration: 30 day, Stop date: 12/19 12/01 16:51:00 Notes: Not to exceed 400mg/day. (Same As: Ultram) Start Date: 12/05/13 Stop Date: 12/07/13 Status: Discontinued tramadol 50 mg oral tablet 50 mg=1 tab, PO, Q6H, as needed for pain, # 30 tab, 0 Refill(s) Start Date: 12/07/13 Status: Ordered Zofran 4 mg, 2 mL, Route: IV, Drug form: INJ, Q4H, Dosing Weight 80.455, kg, PRN Nausea , Start date: 12/05/13 20:10:00, Duration: 30 day, Stop date: 01/04/14 20:09:00 Notes: (Same as: Zofran) Start Date: 12/05/13 Stop Date: 12/07/13 Status: Discontinued Zofran 4 mg, 2 mL, Route: IV, Drug form: INJ, Q8H, Dosing Weight 80.455, kg, PRN Nausea , Start date: 12/05/13 17:53:00, Duration: 30 day, Stop date: 01/04/14 17:52:00 Notes: (Same as: Zofran) Start Date: 12/05/13 Stop Date: 12/05/13 Status: Discontinued Zoloft 100 mg, 1 tab, Route: PO, Drug form: TAB, Daily, Dosing Weight 80.455, kg, Start date: 12/06/13 9:00:00, Stop date: 01/03/14 21:00:00 Notes: (Same as: Zoloft) Start Date: 12/06/13 Stop Date: 12/07/13 Status: Discontinued Results BLOOD BANK RESULTS Most recent to 1 3 4 oldest [Reference Range]: ABO/Rh A POS *Unknown* (12/05/13 6:45 AM) Antibody Scrn Negative (12/05/13 6:45 AM) FFP product Product available (12/05/13 6:26 AM) RBC product Product available (12/05/13 6:26 AM) ELECTROLYTES Most recent to 1 2 3 4 oldest [Reference Range]: Sodium Lvl [135-145 136 mEq/L 137 mEq/L 139 mEq/L mEq/L] (12/07/13 5:30 AM) (12/06/13 1:22 AM) (12/05/13 2:00 PM) Potassium Lvl 3.9 mEq/L 4.2 mEq/L 4.2 mEq/L [3.5-5.1 mEq/L] (12/07/13 5:30 AM) (12/06/13 1:22 AM) (12/05/13 2:00 PM) Chloride Lvl [95-109 102 mEq/L 103 mEq/L 104 mEq/L mEq/L] (12/07/13 5:30 AM) (12/06/13 1:22 AM) (12/05/13 2:00 PM) CO2 [24-32 mEq/L] 22 mEq/L 27 mEq/L 26 mEq/L *LOW* (12/06/13 1:22 AM) (12/05/13 2:00 PM) (12/07/13 5:30 AM) AGAP [10.0-20.0 15.9 mEq/L 11.2 mEq/L 13.2 mEq/L mEq/L] (12/07/13 5:30 AM) (12/06/13 1:22 AM) (12/05/13 2:00 PM) CHEM PANEL Most recent to 1 2 3 4 oldest [Reference Range]: Creatinine Lvl 0.8 mg/dL 1.0 mg/dL 1.0 mg/dL 1.0 mg/dL [0.5-1.4 mg/dL] (12/07/13 5:30 AM) (12/06/13 1:22 AM) (12/05/13 2:00 PM) (12/05/13 2:00 PM) eGFR 75 mL/min/1.73m2 1 58 mL/min/1.73m2 2 58 mL/min/1.73m2 3 58 mL/min/1.73m2 4 *NA* *NA* *NA* *NA* (12/07/13 5:30 AM) (12/06/13 1:22 AM) (12/05/13 2:00 PM) (12/05/13 2:00 PM) BUN [7-22 mg/dL] 8 mg/dL 9 mg/dL 11 mg/dL (12/07/13 5:30 AM) (12/06/13 1:22 AM) (12/05/13 2:00 PM) B/C Ratio [6-25] 11 (12/05/13 2:00 PM) Glucose Lvl [70-99 161 mg/dL 5 200 mg/dL 6 187 mg/dL 7 mg/dL] *HI* *HI* *HI* (12/07/13 5:30 AM) (12/06/13 1:22 AM) (12/05/13 2:00 PM) Total Protein 7.4 g/dL 7.5 g/dL [6.4-8.4 g/dL] (12/06/13 1:22 AM) (12/05/13 2:00 PM) Albumin Lvl [3.5-5.0 3.5 g/dL 3.4 g/dL g/dL] (12/06/13 1:22 AM) *LOW* (12/05/13 2:00 PM) Globulin [2.0-4.0 3.9 g/dL 4.1 g/dL g/dL] (12/06/13 1:22 AM) *HI* (12/05/13 2:00 PM) A/G Ratio [0.7-1.6] 0.9 0.8 (12/06/13 1:22 AM) (12/05/13 2:00 PM) Calcium Lvl 8.7 mg/dL 8.5 mg/dL 8.4 mg/dL [8.5-10.5 mg/dL] (12/07/13 5:30 AM) (12/06/13 1:22 AM) *LOW* (12/05/13 2:00 PM) Phosphorus [2.5-4.5 3.2 mg/dL 3.7 mg/dL 3.4 mg/dL mg/dL] (12/07/13 5:30 AM) (12/06/13 1:22 AM) (12/05/13 2:00 PM) Magnesium Lvl 2.2 mg/dL 2.8 mg/dL 2.3 mg/dL [1.8-2.4 mg/dL] (12/07/13 5:30 AM) *HI* (12/05/13 2:00 PM) (12/06/13 1:22 AM) ALT [0-65 unit/L] 18 unit/L 19 unit/L (12/06/13 1:22 AM) (12/05/13 2:00 PM) AST [0-37 unit/L] 19 unit/L 20 unit/L (12/06/13 1:22 AM) (12/05/13 2:00 PM) Alk Phos [39-136 98 unit/L 95 unit/L unit/L] (12/06/13 1:22 AM) (12/05/13 2:00 PM) Bili Total [0.2-1.3 0.5 mg/dL 0.5 mg/dL mg/dL] (12/06/13 1:22 AM) (12/05/13 2:00 PM) Bili Direct [0.0-0.3 0.1 mg/dL mg/dL] (12/06/13 1:22 AM) Bili Indirect 0.4 mg/dL [0.0-1.0 mg/dL] (12/06/13 1:22 AM) Amylase Lvl [25-115 42 unit/L unit/L] (12/05/13 2:00 PM) Lipase Lvl [73-393 190 unit/L unit/L] (12/05/13 2:00 PM) Lactic Acid Lvl 1.8 mMol/L [0.5-2.2 mMol/L] (12/05/13 11:49 AM) 1Result Comment: The eGFR is calculated [...] be mul tiplied by the estimated BMI. 2Result Comment: The eGFR is calculated using [...] be mul tiplied by the estimated BMI. 3Result Comment: The eGFR is calculated using [...] be mul tiplied by the estimated BMI. 4Result Comment: The eGFR is calculated using [...] be mul tiplied by the estimated BMI. 5Interpretive Data: Adult reference range values reflect the clinical guidelines of the [place] [employer]. 6Interpretive Data: Adult reference range values reflect the clinical guidelines of the [place] [employer]. 7Interpretive Data: Adult reference range values reflect the clinical guidelines of the [place] [employer]. CARDIAC ENZYMES Most recent to 1 2 3 4 oldest [Reference Range]: Troponin-T 0.017 ng/mL 0.020 ng/mL 0.037 ng/mL [0.000-0.100 ng/mL] (12/06/13 1:22 AM) (12/05/13 11:36 PM) (12/05/13 2:00 PM) Troponin-I 0.27 ng/mL 0.29 ng/mL 0.36 ng/mL [0.00-0.40 ng/mL] (12/06/13 1:22 AM) (12/06/13 1:22 AM) (12/05/13 11:36 PM) BNP [<=100 pg/mL] 116 pg/mL 8 183 pg/mL 9 70 pg/mL 10 *HI* *HI* (12/05/13 2:00 PM) (12/07/13 5:30 AM) (12/06/13 1:22 AM) 8Interpretive Data: Elevated results are in line with increasing severity of congestive heart failure. Minor elevations between 100 and 300 may be seen with Myocardial Ischemia, Sodium retaining drugs, and compensated/treated heart failure. 9Interpretive Data: Elevated results are in line with increasing severity of congestive heart failure. Minor elevations between 100 and 300 may be seen with Myocardial Ischemia, Sodium retaining drugs, and compensated/treated heart failure. 10Interpretive Data: Elevated results are in line with increasing severity of congestive heart failure. Minor elevations between 100 and 300 may be seen with Myocardial Ischemia, Sodium retaining drugs, and compensated/treated heart failure. SPECIAL CHEMISTRY Most recent to [Reference Range]: Hgb A1C [<=5.6 %] 7.9 % *HI* (12/05/13 11:49 AM) THYROID PANEL Most recent to [Reference Range]: TSH [0.360-3.740 2.990 uIU/mL uIU/mL] (12/05/13 11:49 AM) PARATHYROID PROFILE Most recent to [Reference Range]: Ca Ion WB [1.05-1.25 1.10 mMol/L 1.08 mMol/L mMol/L] (12/06/13 1:22 AM) (12/05/13 11:49 AM) Ca Norm WB 1.12 mMol/L 1.04 mMol/L [1.05-1.25 mMol/L] (12/06/13 1:22 AM) *LOW* (12/05/13 11:49 AM) HEMATOLOGY Most recent to 1 2 3 4 oldest [Reference Range]: WBC [3.7-10.4 K/CMM] 7.5 K/CMM 12.1 K/CMM 8.4 K/CMM (12/07/13 5:30 AM) *HI* (12/05/13 2:00 PM) (12/06/13 1:22 AM) RBC [4.20-5.40 4.27 M/CMM 4.45 M/CMM 4.46 M/CMM M/CMM] (12/07/13 5:30 AM) (12/06/13 1:22 AM) (12/05/13 2:00 PM) Hgb [12.0-16.0 g/dL] 10.1 g/dL 10.3 g/dL 10.4 g/dL *LOW* *LOW* *LOW* (12/07/13 5:30 AM) (12/06/13 1:22 AM) (12/05/13 2:00 PM) Hct [36.0-48.0 %] 31.2 % 32.4 % 32.2 % *LOW* *LOW* *LOW* (12/07/13 5:30 AM) (12/06/13 1:22 AM) (12/05/13 2:00 PM) MCV [81.0-99.0 fL] 73.1 fL 72.8 fL 72.2 fL *LOW* *LOW* *LOW* (12/07/13 5:30 AM) (12/06/13 1:22 AM) (12/05/13 2:00 PM) MCH [27.0-31.0 pg] 23.6 pg 23.2 pg 23.3 pg *LOW* *LOW* *LOW* (12/07/13 5:30 AM) (12/06/13 1:22 AM) (12/05/13 2:00 PM) MCHC [32.0-36.0 32.2 g/dL 31.8 g/dL 32.3 g/dL g/dL] (12/07/13 5:30 AM) *LOW* (12/05/13 2:00 PM) (12/06/13 1:22 AM) RDW [11.5-14.5 %] 19.2 % 19.3 % 18.9 % *HI* *HI* *HI* (12/07/13 5:30 AM) (12/06/13 1:22 AM) (12/05/13 2:00 PM) Platelet [133-450 203 K/CMM 266 K/CMM 241 K/CMM K/CMM] (12/07/13 5:30 AM) (12/06/13 1:22 AM) (12/05/13 2:00 PM) MPV [7.4-10.4 fL] 8.5 fL 8.5 fL 8.2 fL (12/07/13 5:30 AM) (12/06/13 1:22 AM) (12/05/13 2:00 PM) Segs [45.0-75.0 %] 76.4 % 85.6 % 78.7 % *HI* *HI* *HI* (12/07/13 5:30 AM) (12/06/13:22 AM) (12/05/13 2:00 PM) Lymphocytes 14.5 % 8.3 % 13.9 % [20.0-40.0 %] *LOW* *LOW* *LOW* (12/07/13 5:30 AM) (12/06/13 1:22 AM) (12/05/13 2:00 PM) Monocytes [2.0-12.0 7.7 % 5.3 % 6.5 % %] (12/07/13 5:30 AM) (12/06/13 1:22 AM) (12/05/13 2:00 PM) Eosinophils [0.0-4.0 0.7 % 0.4 % 2.0 % %] (12/07/13 5:30 AM) (12/05/13 2:00 PM) (12/05/13 11:49 AM) Basophils [0.0-1.0 0.7 % 0.8 % 0.5 % %] (12/07/13 5:30 AM) (12/06/13 1:22 AM) (12/05/13 2:00 PM) Segs-Bands # 5.7 K/CMM 10.4 K/CMM 6.6 K/CMM [1.5-8.1 K/CMM] (12/07/13 5:30 AM) *HI* (12/05/13 2:00 PM) (12/06/13 1:22 AM) Lymphocytes # 1.1 K/CMM 1.0 K/CMM 1.2 K/CMM [1.0-5.5 K/CMM] (12/07/13 5:30 AM) (12/06/13 1:22 AM) (12/05/13 2:00 PM) Monocytes # [0.0-0.8 0.6 K/CMM 0.6 K/CMM 0.5 K/CMM K/CMM] (12/07/13 5:30 AM) (12/06/13 1:22 AM) (12/05/13 2:00 PM) Eosinophils # 0.1 K/CMM 0.2 K/CMM 0.1 K/CMM [0.0-0.5 K/CMM] (12/07/13 5:30 AM) (12/05/13 11:49 AM) (12/05/13 6:26 AM) Basophils # [0.0-0.2 0.1 K/CMM 0.1 K/CMM 0.1 K/CMM K/CMM] (12/07/13 5:30 AM) (12/06/13 1:22 AM) (12/05/13 11:49 AM) Microcyte [None 2+ 1+ 1+ Seen] *ABN* *ABN* *ABN* (12/07/13 5:30 AM) (12/06/13 1:22 AM) (12/05/13 2:00 PM) PT [12.0-14.7 14.6 seconds 14.4 seconds 14.9 seconds seconds] (12/07/13 5:30 AM) (12/06/13 1:22 AM) *HI* (12/05/13 2:00 PM) INR [0.85-1.17] 1.15 11 1.13 12 1.18 13 (12/07/13 5:30 AM) (12/06/13 1:22 AM) *HI* (12/05/13 2:00 PM) PTT [22.9-35.8 31.9 seconds 14 30.0 seconds 15 32.0 seconds 16 seconds] (12/07/13 5:30 AM) (12/06/13 1:22 AM) (12/05/13 2:00 PM) 11Interpretive Data: RECOMMENDED RANGES FOR PROTIME INR: 2.0-3.0 for most medical and surgical thromboembolic states. 2.5-3.5 for artificial heart valves and recurrent embolism. INR SHOULD BE USED ONLY FOR PATIENTS ON STABLE ANTICOAGULANT THERAPY. 12Interpretive Data: RECOMMENDED RANGES FOR PROTIME INR: 2.0-3.0 for most medical and surgical thromboembolic states. 2.5-3.5 for artificial heart valves and recurrent embolism. INR SHOULD BE USED ONLY FOR PATIENTS ON STABLE ANTICOAGULANT THERAPY. 13Interpretive Data: RECOMMENDED RANGES FOR PROTIME INR: 2.0-3.0 for most medical and surgical thromboembolic states. 2.5-3.5 for artificial heart valves and recurrent embolism. INR SHOULD BE USED ONLY FOR PATIENTS ON STABLE ANTICOAGULANT THERAPY. 14Interpretive Data: Heparin Therapeutic Range: 57 - 92 Seconds 15Interpretive Data: Heparin Therapeutic Range: 57 - 92 Seconds 16Interpretive Data: Heparin Therapeutic Range: 57 - 92 Seconds BACTERIAL - SEROLOGY Most recent to 1 2 3 4 oldest [Reference Range]: MRSA by PCR Negative 17 (12/05/13 11:49 AM) 17Interpretive Data: Interpretive Data: The [employer] [...] reaction (PCR) assay detects a proprietary sequence indicat latonya of the integration of the SCCmec cassette into the Staphylococcus aureus chr omosome, indicating the presence of MRSA DNA. The assay utilizes FDA cleared IV D reagents. Performance characteristics have been verified by the [facility] within the [facility]. The [facility] is authorized under the Clinical Laboratory Improvement Amendment of 1 988 (CLIA-88) to perform high complexity testing. Medications Administered During Your Visit No data available for this section Immunizations No data available for this section Social History Social History Type Response Smoking Status Never smoker, Exposure to Tobacco Smoke None, Cigarette Smoking Last 365 Days No, Reg Smoking Cessation Counseling No
--- OUTSIDE RECORDS SUMMARY | 2018-08-12 10:16 | XMS REPORT | Summary of Care ---
Author Author [facility] Organization [facility] Address Unknown Phone Unavailable Encounter MANDI Juarez(DEBBY) [id number] Date(s): 12/28/15 - 12/28/15 [facility] [address], [address] [place], [place] [address] Discharge Disposition: Home or Self Care Attending Physician: Ivet Newman MD Referring Physician: Ivet Newman MD Vital Signs Most recent to 1 oldest [Reference Range]: Height 160.02 cm (12/28/15 12:29 PM) Temperature Oral 98.1 DegF [96.4-99.1 DegF] (12/28/15 12:29 PM) Blood Pressure 145/83 mmHg [90-140/60-90 mmHg] *HI* (12/28/15 12:29 PM) Respiratory Rate 18 BRMIN [14-20 BRMIN] (12/28/15 12:29 PM) Peripheral Pulse 89 bpm Rate [60-100 bpm] (12/28/15 12:29 PM) Weight 76.591 kg (12/28/15 12:29 PM) Body Mass Index 29.91 m2 (12/28/15 12:29 PM) Problem List Condition Effective Dates Status Health Status Informant Angina(Confirmed) Resolved Aortic Active stenosis(Confirmed) CHF - Congestive Active heart failure(Confirmed) DM (diabetes Active mellitus)(Confirmed) Pulmonary Active HTN(Confirmed) Allergies, Adverse Reactions, Alerts Substance Reaction Severity Status NKDA Active Medications escitalopram 20 mg oral tablet 20 mg=1 tab, PO, Daily, 0 Refill(s) Start Date: 12/28/15 Status: Ordered Results No data available for [...]
--- OUTSIDE RECORDS SUMMARY | 2018-08-12 10:16 | XMS REPORT | Summary of Care ---
Author Author [facility] Organization [facility] Address Unknown Phone Unavailable Encounter HQ Nakiar_obdulia(FIN) [id number] Date(s): 12/28/15 - 12/28/15 [facility] [address] [place] [address]- [phone] Discharge Disposition: Home or Self Care Attending Physician: Ivet Newman MD Vital Signs [...]
--- OUTSIDE RECORDS SUMMARY | 2018-08-12 10:16 | XMS REPORT ---
Author Author Kimmy Dubois [facility] eClinicalWorks Address Unknown Phone Unavailable Care Team Providers Care Supervisor Treating And Pumping Name Role Phone Kimmy Dubois CP Unavailable Allergies, Adverse Reactions, Alerts Substance Reaction Event Type N.K.D.A. Info Not Available Non Drug Allergy Problems Problem Type Condition Code Onset Dates Condition Status Assessment Acute pain of left shoulder M25.512 Active Assessment Osteoarthritis M19.90 Active Assessment Chronic prescription opiate use Z79.891 Active Problem Special screening for osteoporosis Z13.820 Active Problem Fall from chair, initial encounter W07.XXXA Active Problem Chronic prescription opiate use Z79.891 Active Problem Osteoarthritis M19.90 Active Assessment Polymyalgia rheumatica M35.3 Active Problem Other specified arthritis, multiple sites M13.89 Active Problem Polymyalgia rheumatica M35.3 Active Medications Medication Code System Code Instructions Start Date End Date Status Dosage Escitalopram Oxalate [facility] [address]-12 10 MG Orally Once a day Active 1 tablet Crestor [facility] [address]-42 10 MG Orally Once a day Active 1 tablet Hydrocodone-Acetaminophen [facility] [address]-06 10-325 MG Orally every 6 hrs Active 1 tablet as needed Macrobid [facility] [address]-39 100 MG Orally every 12 hrs Active 1 capsule with food Pantoprazole Sodium [facility] [address]-37 40 MG Orally Before each meal and then before bed Active 1 tablet Metformin HCl [facility] [address]-27 500 MG Orally Twice a day Active 1 tablet with meals Tizanidine HCl [facility] 50701051388 4 MG Orally bid Active 1 tablet as needed PredniSONE [facility] [address]-02 5 MG Orally Once a day prn Active 2 tablets Trazodone HCl [facility] [address]-44 50 MG Orally Once a day Active 1 tablet at bedtime as needed Lorazepam [facility] [address]-64 1 MG Orally once a day Active 1 tablet as needed Vital Signs Date/Time: October 19, 2016 BMI 30.04 Index Weight 159 lbs Height 61 in Temperature 97.4 F Cardiac Monitoring Heart Rate 68 /min Blood Pressure Diastolic 72 mm Hg Blood Pressure Systolic 134 mm Hg Results No Known Results Summary Purpose eClinicalWorks Submission
--- OUTSIDE RECORDS SUMMARY | 2018-08-12 10:17 | XMS REPORT ---
Author Author Loco Landeros Organization [employer] Address Unknown Phone Unavailable Care Team Providers Care Bridge Attacher Name Role Phone Loco Landeros CP Unavailable Allergies No Known Allergies Problems Problem Type Condition Code Onset Dates Condition Status Problem Polymyalgia rheumatica M35.3 Active Problem Other specified arthritis, multiple sites M13.89 Active Problem Age related osteoporosis M81.0 Active Problem Age-related osteoporosis with current pathological fracture, initial encounter M80.00XA Active Problem Vitamin D deficiency E55.9 Active Problem Fall from chair, initial encounter W07.XXXA Active Problem Osteoarthritis M19.90 Active Problem Chronic prescription opiate use Z79.891 Active Problem Special screening for osteoporosis Z13.820 Active Medications No Known Medications Results No Known Results Summary Purpose eClinicalWorks Submission
--- OUTSIDE RECORDS SUMMARY | 2018-08-12 10:17 | XMS REPORT ---
Author Author Loco Landeros Organization [employer] Address Unknown Phone Unavailable Care Team Providers Care Coal Picker Name Role Phone Loco Landeros CP Unavailable Allergies No Known Allergies Problems Problem Type Condition Code Onset Dates Condition Status Problem Other specified arthritis, multiple sites M13.89 Active Problem Polymyalgia rheumatica M35.3 Active Problem Vitamin D deficiency E55.9 Active Problem Age related osteoporosis M81.0 Active Problem Primary insomnia F51.01 Active Problem Fall from chair, initial encounter W07.XXXA Active Problem Osteoarthritis M19.90 Active Problem Chronic prescription opiate use Z79.891 Active Problem Special screening for osteoporosis Z13.820 Active Medications Medication Code System Code Instructions Start Date End Date Status Dosage Lyrica [facility] 30790160794 75 MG Orally Once a day Apr 25, 2018 Active 1 capsule Results No Known Results Summary Purpose eClinicalWorks Submission
--- OUTSIDE RECORDS SUMMARY | 2018-08-12 10:17 | XMS REPORT ---
Author Author Loco Landeros Organization [employer] Address Unknown Phone Unavailable Care Team Providers Care Viscose Cellar Worker Name Role Phone Loco Landeros CP Unavailable Allergies No Known Allergies Problems Problem Type Condition Code Onset Dates Condition Status Problem Chronic prescription opiate use Z79.891 Active Problem Special screening for osteoporosis Z13.820 Active Problem Age-related osteoporosis with current pathological fracture, initial encounter M80.00XA Active Problem Polymyalgia rheumatica M35.3 Active Problem Osteoarthritis M19.90 Active Problem Fall from chair, initial encounter W07.XXXA Active Problem Other specified arthritis, multiple sites M13.89 Active Medications No Known Medications Results No Known Results Summary Purpose eClinicalWorks Submission
--- OUTSIDE RECORDS SUMMARY | 2018-08-12 10:17 | XMS REPORT ---
Author Author Loco Landeros Organization [employer] Address Unknown Phone Unavailable Care Team Providers Care Site Surveyor Name Role Phone Loco Landeros CP Unavailable Allergies No Known Allergies Problems Problem Type Condition Code Onset Dates Condition Status Problem Polymyalgia rheumatica M35.3 Active Problem Osteoarthritis M19.90 Active Problem Vitamin D deficiency E55.9 Active Problem Age-related osteoporosis with current pathological fracture, initial encounter M80.00XA Active Problem Age related osteoporosis M81.0 Active Problem Fall from chair, initial encounter W07.XXXA Active Problem Other specified arthritis, multiple sites M13.89 Active Problem Chronic prescription opiate use Z79.891 Active Problem Special screening for osteoporosis Z13.820 Active Medications Medication Code System Code Instructions Start Date End Date Status Dosage Vitamin D (Ergocalciferol) [facility] [address]-94 47973 UNIT Orally once a week Feb 08, 2017 Jun 08, 2017 Active 1 capsule Results No Known Results Summary Purpose eClinicalWorks Submission
--- OUTSIDE RECORDS SUMMARY | 2018-08-12 10:17 | XMS REPORT ---
Author Author Kimmy Dubois [facility] eClinicalWorks Address Unknown Phone Unavailable Care Team Providers Care Tailman Name Role Phone Kimmy Dubois CP Unavailable Allergies, Adverse Reactions, Alerts Substance Reaction Event Type N.K.D.A. Info Not Available Non Drug Allergy Problems Problem Type Condition Code Onset Dates Condition Status Assessment Polymyalgia rheumatica M35.3 Active Problem Polymyalgia rheumatica M35.3 Active Problem Other specified arthritis, multiple sites M13.89 Active Assessment Age related osteoporosis M81.0 Active Assessment Osteoarthritis M19.90 Active Problem Age related osteoporosis M81.0 Active Problem Age-related osteoporosis with current pathological fracture, initial encounter M80.00XA Active Problem Vitamin D deficiency E55.9 Active Problem Fall from chair, initial encounter W07.XXXA Active Problem Osteoarthritis M19.90 Active Problem Chronic prescription opiate use Z79.891 Active Problem Special screening for osteoporosis Z13.820 Active Medications Medication Code System Code Instructions Start Date End Date Status Dosage Tizanidine HCl [facility] 35692205129 4 MG Orally bid October 21, 2017 Active 1 tablet as needed Hydrocodone-Acetaminophen ND 34683780485 10-325 MG Orally every 6 hrs October 21, 2017 Active 1 tablet as needed Vitamin D (Ergocalciferol) ND 70244424810 78618 UNIT Orally once a week Active 1 capsule Medrol Dose Eric ND 21521404504 4mg Orally once a day Active as directed Prolia ND 25245823910 60 MG/ML Subcutaneous every 6 months Active as directed PredniSONE ND 76920533454 5 MG Orally Once a day Active 1 tablet as needed Pantoprazole Sodium ND 98779043753 40 MG Orally Before each meal and then before bed Active 1 tablet Metformin HCl ND 60137940431 500 MG Orally Twice a day Active 1 tablet with meals Trazodone HCl ND 44357411580 50 MG Orally Once a day Active 1 tablet at bedtime as needed Lorazepam ND 27762248214 1 MG Orally once a day Active 1 tablet as needed Escitalopram Oxalate [facility] 54797495299 10 MG Orally Once a day Active [address] [facility] 48534688898 10 MG Orally Once a day Active 1 tablet Vital Signs Date/Time: July 23, 2017 BMI 31.99 Index Weight 163.8 lbs Height 60 in Temperature 99.0 F Cardiac Monitoring Heart Rate 60 /min Blood Pressure Diastolic 68 mm Hg Blood Pressure Systolic 122 mm Hg Results No Known Results Summary Purpose eClinicalWorks Submission
--- OUTSIDE RECORDS SUMMARY | 2018-08-12 10:17 | XMS REPORT ---
Author Author Loco Landeros Organization [employer] Address Unknown Phone Unavailable Care Team Providers Care Welt Maker Name Role Phone Loco Landeros CP Unavailable [...]
--- OUTSIDE RECORDS SUMMARY | 2018-08-12 10:17 | XMS REPORT ---
Author Author Kimmy Dubois [facility] eClinicalWorks Address Unknown Phone Unavailable Care Team Providers Care Human Capital Consultant Name Role Phone Kimmy Dubois CP Unavailable Allergies, Adverse Reactions, Alerts Substance Reaction Event Type N.K.D.A. Info Not Available Non Drug Allergy Problems Problem Type Condition Code Onset Dates Condition Status Problem Other specified arthritis, multiple sites M13.89 Active Problem Polymyalgia rheumatica M35.3 Active Assessment Osteoarthritis M19.90 Active Assessment Primary insomnia F51.01 Active Assessment Chronic prescription opiate use Z79.891 Active Assessment Polymyalgia rheumatica M35.3 Active Problem Vitamin D deficiency E55.9 Active Problem Age related osteoporosis M81.0 Active Problem Primary insomnia F51.01 Active Problem Fall from chair, initial encounter W07.XXXA Active Problem Osteoarthritis M19.90 Active Problem Chronic prescription opiate use Z79.891 Active Problem Special screening for osteoporosis Z13.820 Active Medications Medication Code System Code Instructions Start Date End Date Status Dosage Tizanidine HCl ND 87854485888 4 MG Orally bid Jul 01, 2018 September 30, 2018 Active 1 tablet as needed Hydrocodone-Acetaminophen ND 28308835943 10-325 MG Orally every 6 hrs July 25, 2018 Active 1 tablet as needed Temazepam ND 46850594777 15 MG Orally qhs prn for sleep July 25, 2018 Active 1 capsule at bedtime as needed PredniSONE ND 53606084871 5 MG Orally Once a day July 25, 2018 Active 1 tablet as needed Trazodone HCl ND 86234314754 50 MG Orally Once a day Active 1 tablet at bedtime as needed Lorazepam ND 85404481783 1 MG Orally once a day Active 1 tablet as needed Crestor ND 61918476597 10 MG Orally Once a day Active 1 tablet Rosuvastatin Calcium ND 89802636984 10 MG Orally Once a day Active 1 tablet Pantoprazole Sodium ND 77190768225 40 MG Orally Before each meal and then before bed Active 1 tablet Lyrica NDC 99790839024 75 MG Orally Once a day July 25, 2018 Active 1 capsule Prolia [facility] 63922741048 60 MG/ML Subcutaneous every 6 months Active as directed Escitalopram Oxalate [facility] 96887635450 10 MG Orally Once a day Active 1 tablet Metformin HCl [facility] 37534446958 500 MG Orally Twice a day Active 1 tablet with meals Vitamin D (Ergocalciferol) [facility] 03606098815 61945 UNIT Active 1 CAPSULE ONCE A WEEK ORALLY 90 DAYS Vital Signs Date/Time: July 25, 2018 BMI 30 Index Weight 159.3 lbs Height 61 in Temperature 98.0 F Cardiac Monitoring Heart Rate 96 /min Blood Pressure Diastolic 58 mm Hg Blood Pressure Systolic 90 mm Hg Results No Known Results Summary Purpose eClinicalWorks Submission
--- OUTSIDE RECORDS SUMMARY | 2018-08-12 10:17 | XMS REPORT ---
Author Author Loco Landeros Organization e[employer] Address Unknown Phone Unavailable Care Team Providers Care Pill Machine Operator Name Role Phone Loco Landeros CP Unavailable [...]
--- OUTSIDE RECORDS SUMMARY | 2018-08-12 10:17 | XMS REPORT ---
Author Author Loco Landeros Organization [employer] Address Unknown Phone Unavailable Care Team Providers Care Cartographic Designer Name Role Phone Loco Landeros CP Unavailable [...]
--- OUTSIDE RECORDS SUMMARY | 2018-08-12 10:17 | XMS REPORT ---
Author Author Kimmy Dubois [facility] eClinicalWorks Address Unknown Phone Unavailable Care Team Providers Care Nursing Program Coordinator Name Role Phone Kimmy Dubois CP Unavailable [...] Instructions Start Date End Date Status Dosage Hydrocodone-Acetaminophen ND 31325319045 10-325 MG Orally every 6 hrs Active 1 tablet as needed Tizanidine HCl ND 58375872984 4 MG Orally bid Active 1 tablet as needed Trazodone HCl ND 20802235045 50 MG Orally Once a day Active 1 tablet at bedtime as needed Escitalopram Oxalate ND 33394682603 10 MG Orally Once a day Active 1 tablet Lorazepam ND 53993802222 1 MG Orally once a day Active 1 tablet as needed Prolia ND 75939979204 60 MG/ML Subcutaneous every 6 months Active as directed Pantoprazole Sodium ND 99614536619 40 MG Orally Before each meal and then before bed Active 1 tablet Medrol Dose Eric ND 12740707753 4mg Orally once a day Jun 25, 2017 Active as directed Metformin HCl ND 78406986050 500 MG Orally Twice a day Active 1 tablet with meals PredniSONE ND 74374497441 5 MG Orally Once a day Active 1 tablet as needed Vitamin D (Ergocalciferol) [facility] 27083018575 74604 UNIT Orally once a week Active 1 capsule Crestor [facility] 81769953402 10 MG Orally Once a day Active 1 tablet Vital Signs Date/Time: Jun 25, 2017 BMI 30.81 Index Weight 163.1 lbs Height 61 in Temperature 98.3 F Cardiac Monitoring Heart Rate 80 /min Blood Pressure Diastolic 70 mm Hg Blood Pressure Systolic 100 mm Hg Results No Known Results Summary Purpose eClinicalWorks Submission
--- OUTSIDE RECORDS SUMMARY | 2018-08-12 10:17 | XMS REPORT ---
Author Author Kimmy Dubois [facility] eClinicalWorks Address Unknown Phone Unavailable Care Team Providers Care Registered Dietetic Technician Name Role Phone Kimmy Dubois CP Unavailable [...] Special screening for osteoporosis Z13.820 Active Assessment Pain of left leg M79.605 Active Assessment Age-related osteoporosis with current pathological fracture, initial encounter M80.00XA Active Assessment Osteoarthritis M19.90 Active Assessment Pain in right leg M79.604 Active Assessment Chronic prescription opiate use Z79.891 Active Medications Medication Code System Code Instructions Start Date End Date Status Dosage Escitalopram Oxalate ND 61585691884 10 MG Orally Once a day Active 1 tablet Metformin HCl ND 41127777456 500 MG Orally Twice a day Active 1 tablet with meals Lyrica ND 97786408983 50 MG Orally QHS November 20, 2017 Active 1 capsule Trazodone HCl ND 47221917893 50 MG Orally Once a day Active 1 tablet at bedtime as needed Bentyl ND 90603567564 10 MG Orally Four times a day Active 2 capsules Lorazepam ND 08774330447 1 MG Orally once a day Active 1 tablet as needed Vitamin D (Ergocalciferol) [facility] 85122462747 38973 UNIT Orally once a week Active 1 capsule PredniSONE ND 89169348460 5 MG Orally Once a day Active 1 tablet as needed Pantoprazole Sodium ND 91269461770 40 MG Orally Before each meal and then before bed Active 1 tablet Tizanidine HCl ND 92220354157 4 MG Orally bid Active 1 tablet as needed Crestor ND 31028019288 10 MG Orally Once a day Active [address] [facility] 73758612031 60 MG/ML Subcutaneous every 6 months Active as directed Hydrocodone-Acetaminophen [facility] 89948221824 10-325 MG Orally every 6 hrs Active 1 tablet as needed Vital Signs Date/Time: November 20, 2017 BMI 30.91 Index Weight 163.6 lbs Height 61 in Temperature 97.5 F Cardiac Monitoring Heart Rate 102 /min Blood Pressure Diastolic 90 mm Hg Blood Pressure Systolic 150 mm Hg Results No Known Results Summary Purpose eClinicalWorks Submission
--- OUTSIDE RECORDS SUMMARY | 2018-08-12 10:17 | XMS REPORT ---
Author Author Kimmy Dubois [facility] eClinicalWorks Address Unknown Phone Unavailable Care Team Providers Care Library Media Assistant Name Role Phone Kimmy Dubois CP Unavailable [...] Special screening for osteoporosis Z13.820 Active Assessment Osteoarthritis M19.90 Active Assessment Chronic prescription opiate use Z79.891 Active Assessment Primary insomnia F51.01 Active Assessment Polymyalgia rheumatica M35.3 Active Medications Medication Code System Code Instructions Start Date End Date Status Dosage Escitalopram Oxalate ND 02709868621 10 MG Orally Once a day Active 1 tablet PredniSONE ND 25890089261 5 MG Orally Once a day Active 1 tablet as needed Crestor ND 82867076660 10 MG Orally Once a day Active 1 tablet Pantoprazole Sodium ND 81002649372 40 MG Orally Before each meal and then before bed Active 1 tablet Prolia [facility] 60093790317 60 MG/ML Subcutaneous every 6 months Active as directed Vitamin D (Ergocalciferol) [facility] 42440656439 30568 UNIT Active 1 CAPSULE ONCE A WEEK ORALLY 90 DAYS Tizanidine HCl ND 76009617372 4 MG Orally bid Active 1 tablet as needed Hydrocodone-Acetaminophen ND 91618526480 10-325 MG Orally every 6 hrs Active 1 tablet as needed Temazepam ND 72536883986 15 MG Orally qhs prn for sleep Feb 22, 2018 Active 1 capsule at bedtime as needed Lorazepam ND 66638813663 1 MG Orally once a day Active 1 tablet as needed Lyrica [facility] 87894463188 75 MG Orally Once a day Apr 25, 2018 Active 1 capsule Trazodone HCl [facility] 93509070853 50 MG Orally Once a day Active 1 tablet at bedtime as needed Metformin HCl [facility] 94062821348 500 MG Orally Twice a day Active 1 tablet with meals Vital Signs Date/Time: May 27, 2018 BMI 32.36 Index Weight 165.7 lbs Height 60 in Temperature 97.0 F Cardiac Monitoring Heart Rate 80 /min Blood Pressure Diastolic 62 mm Hg Blood Pressure Systolic 130 mm Hg Results No Known Results Summary Purpose eClinicalWorks Submission
--- OUTSIDE RECORDS SUMMARY | 2018-08-12 10:17 | XMS REPORT ---
Author Author Loco Landeros Organization eClinicalWorks Address Unknown Phone Unavailable Care Team Providers Care Science Writer Name Role Phone Loco Landeros CP Unavailable [...]
--- OUTSIDE RECORDS SUMMARY | 2018-08-12 10:17 | XMS REPORT ---
Author Author Kimmy Dubois [facility] eClinicalWorks Address Unknown Phone Unavailable Care Team Providers Care Athletic Director Name Role Phone Kimmy Dubois CP Unavailable Allergies, Adverse Reactions, Alerts Substance Reaction Event Type N.K.D.A. Info Not Available Non Drug Allergy Problems Problem Type Condition Code Onset Dates Condition Status Assessment Osteoarthritis M19.90 Active Problem Polymyalgia rheumatica M35.3 Active Problem Osteoarthritis M19.90 Active Assessment Polymyalgia rheumatica M35.3 Active Assessment Age-related osteoporosis with current pathological [...] Instructions Start Date End Date Status Dosage Trazodone HCl [facility] [address]-93 50 MG Orally Once a day Active 1 tablet at bedtime as needed PredniSONE [facility] 55105688280 5mg once a day prn Active TAKE 2 TABLETS BY MOUTH DAILY NEEDED Crestor [facility] [address]-52 10 MG Orally Once a day Active 1 tablet Lorazepam [facility] [address]-91 1 MG Orally once a day Active 1 tablet as needed Hydrocodone-Acetaminophen [facility] [address]-09 10-325 MG Orally every 6 hrs Active 1 tablet as needed Tizanidine HCl [facility] 97370869996 4 MG Orally bid Active 1 tablet as needed Pantoprazole Sodium [facility] [address]-87 40 MG Orally Before each meal and then before bed Active 1 tablet Vitamin D (Ergocalciferol) [facility] [address]-48 77646 UNIT Orally once a week Feb 08, 2017 Jun 08, 2017 Active 1 capsule Metformin HCl [facility] [address]-93 500 MG Orally Twice a day Active 1 tablet with meals Escitalopram Oxalate [facility] [address]-32 10 MG Orally Once a day Active 1 tablet Vital Signs Date/Time: Feb 22, 2017 BMI 29.68 Index Weight 152 lbs Height 60 in Temperature 97.4 F Cardiac Monitoring Heart Rate 72 /min Blood Pressure Diastolic 70 mm Hg Blood Pressure Systolic 120 mm Hg Results No Known Results Summary Purpose eClinicalWorks Submission
--- OUTSIDE RECORDS SUMMARY | 2018-08-12 10:17 | XMS REPORT ---
Author Author Kimmy Dubois [facility] eClinicalWorks Address Unknown Phone Unavailable Care Team Providers Care Blanchard Grinder Operator Name Role Phone Kimmy Dubois CP Unavailable Allergies, Adverse Reactions, Alerts Substance Reaction Event Type N.K.D.A. Info Not Available Non Drug Allergy Problems Problem Type Condition Code Onset Dates Condition Status Problem Other specified arthritis, multiple sites M13.89 Active Problem Polymyalgia rheumatica M35.3 Active Assessment Osteoarthritis M19.90 Active Assessment Chronic [...] Start Date End Date Status Dosage Hydrocodone-Acetaminophen [facility] 93526289483 10-325 MG Orally every 6 hrs Active 1 tablet as needed Vitamin D (Ergocalciferol) [facility] 56752654059 19520 UNIT Active 1 CAPSULE ONCE A WEEK ORALLY 90 DAYS Trazodone HCl ND 80971088672 50 MG Orally Once a day Active 1 tablet at bedtime as needed Metformin HCl ND 47075330011 500 MG Orally Twice a day Active 1 tablet with meals Tizanidine HCl ND 96994089996 4 MG Orally bid Active 1 tablet as needed Crestor ND 79056077923 10 MG Orally Once a day Active 1 tablet Temazepam ND 87281514049 15 MG Orally qhs prn for sleep Feb 22, 2018 Active 1 capsule at bedtime as needed Lyrica ND 98140324437 75 MG Orally Once a day Active 1 capsule Pantoprazole Sodium ND 62921818897 40 MG Orally Before each meal and then before bed Active 1 tablet Escitalopram Oxalate ND 74677208008 10 MG Orally Once a day Active 1 tablet Lorazepam [facility] 45379724931 1 MG Orally once a day Active 1 tablet as needed PredniSONE [facility] 45519456966 5 MG Orally Once a day Active 1 tablet as needed Prolia [facility] 73666690776 60 MG/ML Subcutaneous every 6 months Active as directed Vital Signs Date/Time: Apr 25, 2018 BMI 31.44 Index Weight 161 lbs Height 60 in Temperature 97.2 F Cardiac Monitoring Heart Rate 88 /min Blood Pressure Diastolic 80 mm Hg Blood Pressure Systolic 142 mm Hg Results No Known Results Summary Purpose eClinicalWorks Submission
--- OUTSIDE RECORDS SUMMARY | 2018-08-12 10:17 | XMS REPORT ---
Author Author Loco Landeros Organization eClinicalWorks Address Unknown Phone Unavailable Care Team Providers Care Brass Cleaner Name Role Phone Loco Landeros CP Unavailable Allergies No Known Allergies Problems Problem Type Condition Code Onset Dates Condition Status Assessment Age related osteoporosis M81.0 Active Problem Polymyalgia rheumatica M35.3 Active Problem Osteoarthritis M19.90 Active Assessment Osteoarthritis M19.90 Active Assessment Vitamin D deficiency E55.9 Active Problem Vitamin D deficiency E55.9 Active [...]
--- OUTSIDE RECORDS SUMMARY | 2018-08-12 10:17 | XMS REPORT ---
Author Author Kimmy Dubois [facility] eClinicalWorks Address Unknown Phone Unavailable Care Team Providers Care Pediatric Geneticist Name Role Phone Kimmy Dubois CP Unavailable [...] Date End Date Status Dosage Tizanidine HCl [facility] 87496102916 4 MG Orally bid Dec 23, 2017 Active 1 tablet as needed PredniSONE ND 72666542590 5 MG Orally Once a day Dec 23, 2017 Active 1 tablet as needed Trazodone HCl ND 89791751515 50 MG Orally Once a day Active 1 tablet at bedtime as needed Metformin HCl ND 28329754647 500 MG Orally Twice a day Active 1 tablet with meals Escitalopram Oxalate ND 57842759570 10 MG Orally Once a day Active 1 tablet Pantoprazole Sodium ND 98502225289 40 MG Orally Before each meal and then before bed Active 1 tablet Prolia [facility] 35460337148 60 MG/ML Subcutaneous every 6 months Active as directed Lorazepam ND 41812027569 1 MG Orally once a day Active 1 tablet as needed Vitamin D (Ergocalciferol) ND 43994075315 89927 UNIT Orally once a week Active 1 capsule Crestor ND 24071631015 10 MG Orally Once a day Active 1 tablet Bentyl NDC 04351804656 10 MG Orally Four times a day Active 2 capsules Hydrocodone-Acetaminophen [facility] 08575506684 10-325 MG Orally every 6 hrs Active 1 tablet as needed Vital Signs Date/Time: September 24, 2017 BMI 32.08 Index Weight 169.8 lbs Height 61 in Temperature 98.2 F Cardiac Monitoring Heart Rate 74 /min Blood Pressure Diastolic 70 mm Hg Blood Pressure Systolic 132 mm Hg Results No Known Results Summary Purpose eClinicalWorks Submission
--- OUTSIDE RECORDS SUMMARY | 2018-08-12 10:17 | XMS REPORT ---
Author Author Kimmy Dubois [facility] eClinicalWorks Address Unknown Phone Unavailable Care Team Providers Care Fraternity House Cook Name Role Phone Kimmy Dubois CP Unavailable [...] Instructions Start Date End Date Status Dosage Lorazepam [facility] 90441759323 1 MG Orally once a day Active 1 tablet as needed Crestor ND 06504691666 10 MG Orally Once a day Active 1 tablet Prolia [facility] 10576051611 60 MG/ML Subcutaneous every 6 months Active as directed Pantoprazole Sodium [facility] 69160169516 40 MG Orally Before each meal and then before bed Active 1 tablet Hydrocodone-Acetaminophen [facility] 72455233776 10-325 MG Orally every 6 hrs November 21, 2017 Active 1 tablet as needed Medrol Dose Eric ND 33475344238 4mg Orally once a day Active as directed Metformin HCl ND 38889304151 500 MG Orally Twice a day Active 1 tablet with meals Escitalopram Oxalate ND 25145878631 10 MG Orally Once a day Active 1 tablet Tizanidine HCl ND 36475624089 4 MG Orally bid October 21, 2017 Active 1 tablet as needed PredniSONE ND 73508483570 5 MG Orally Once a day Active 1 tablet as needed Trazodone HCl [facility] 09432483631 50 MG Orally Once a day Active 1 tablet at bedtime as needed Vitamin D (Ergocalciferol) [facility] 81399698746 78535 UNIT Orally once a week Active 1 capsule Vital Signs Date/Time: August 23, 2017 BMI 32.03 Index Weight 164 lbs Height 60 in Temperature 97.4 F Cardiac Monitoring Heart Rate 72 /min Blood Pressure Diastolic 78 mm Hg Blood Pressure Systolic 122 mm Hg Results No Known Results Summary Purpose eClinicalWorks Submission
--- OUTSIDE RECORDS SUMMARY | 2018-08-12 10:17 | XMS REPORT ---
Author Author Loco Landeros Organization eClinicalWorks Address Unknown Phone Unavailable Care Team Providers Care Count Team Member Name Role Phone Loco Landeros CP Unavailable [...]
--- OUTSIDE RECORDS SUMMARY | 2018-08-12 10:17 | XMS REPORT ---
Author Author Kimmy Dubois [facility] eClinicalWorks Address Unknown Phone Unavailable Care Team Providers Care Cell Support Operator Name Role Phone Kimmy Dubois CP Unavailable Allergies, Adverse Reactions, Alerts Substance Reaction Event Type N.K.D.A. Info Not Available Non Drug Allergy Problems Problem Type Condition Code Onset Dates Condition Status Assessment Age-related osteoporosis with current pathological fracture, initial encounter M80.00XA Active Assessment Osteoarthritis M19.90 Active Assessment Polymyalgia rheumatica M35.3 Active Problem Chronic prescription opiate use Z79.891 Active Problem Special screening for osteoporosis Z13.820 Active Problem Age-related osteoporosis with current pathological fracture, initial encounter M80.00XA Active Problem Polymyalgia rheumatica M35.3 Active Problem Osteoarthritis M19.90 Active Problem Fall from chair, initial encounter W07.XXXA Active Problem Other specified arthritis, multiple sites M13.89 Active Medications Medication Code System Code Instructions Start Date End Date Status Dosage Lorazepam [facility] [address]-51 1 MG Orally once a day Active 1 tablet as needed Trazodone HCl [facility] [address]-64 50 MG Orally Once a day Active 1 tablet at bedtime as needed Metformin HCl [facility] [address]-15 500 MG Orally Twice a day Active 1 tablet with meals Crestor [facility] [address]-24 10 MG Orally Once a day Active 1 tablet Hydrocodone-Acetaminophen [facility] [address]-24 10-325 MG Orally every 6 hrs Active 1 tablet as needed Tizanidine HCl [facility] 07585792507 4 MG Orally bid Active 1 tablet as needed Escitalopram Oxalate [facility] [address]-08 10 MG Orally Once a day Active 1 tablet PredniSONE [facility] 36287275243 5mg once a day prn Active TAKE 2 TABLETS BY MOUTH DAILY NEEDED Pantoprazole Sodium [facility] [address]-73 40 MG Orally Before each meal and then before bed Active 1 tablet Vital Signs Date/Time: Jan 23, 2017 BMI 29.29 Index Weight 150 lbs Height 60 in Temperature 98.2 F Cardiac Monitoring Heart Rate 104 /min Blood Pressure Diastolic 60 mm Hg Blood Pressure Systolic 110 mm Hg Results No Known Results Summary Purpose eClinicalWorks Submission
--- OUTSIDE RECORDS SUMMARY | 2018-08-12 10:17 | XMS REPORT ---
Author Author Loco Landeros [facility] eClinicalWorks Address Unknown Phone Unavailable Care Team Providers Care Rod Hanger Name Role Phone Loco Landeros CP Unavailable Allergies No Known Allergies Problems Problem Type Condition Code Onset Dates Condition Status Assessment Other specified arthritis, multiple sites M13.89 [...] Special screening for osteoporosis Z13.820 Active Assessment Vitamin D deficiency E55.9 Active Assessment Age related osteoporosis M81.0 Active Assessment Fall from chair, initial encounter W07.XXXA Active Assessment Special screening for osteoporosis Z13.820 Active Assessment Age-related osteoporosis with current pathological fracture, initial encounter M80.00XA Active Assessment Osteoarthritis M19.90 Active Assessment Chronic prescription opiate use Z79.891 Active Assessment Polymyalgia rheumatica M35.3 Active Medications No Known Medications Results No Known Results Summary Purpose eClinicalWorks Submission
--- OUTSIDE RECORDS SUMMARY | 2018-08-12 10:17 | XMS REPORT ---
Author Author Kimmy Dubois [facility] eClinicalWorks Address Unknown Phone Unavailable Care Team Providers Care Yarn Weigher Name Role Phone Kimmy Dubois CP Unavailable [...] Assessment Age related osteoporosis M81.0 Active Assessment Age-related osteoporosis with current pathological fracture, initial encounter M80.00XA Active Assessment Osteoarthritis M19.90 Active Medications Medication Code System Code Instructions Start Date End Date Status Dosage Tizanidine HCl ND 26799431352 4 MG Orally bid Active 1 tablet as needed Prolia ND 00210268876 60 MG/ML Subcutaneous every 6 months Mar 26, 2017 Active as directed Pantoprazole Sodium ND 01890852007 40 MG Orally Before each meal and then before bed Active 1 tablet Hydrocodone-Acetaminophen ND 18063803872 10-325 MG Orally every 6 hrs May 25, 2017 Active 1 tablet as needed Metformin HCl ND 11089331514 500 MG Orally Twice a day Active 1 tablet with meals Trazodone HCl ND 11632034397 50 MG Orally Once a day Active 1 tablet at bedtime as needed Lorazepam ND 52245663667 1 MG Orally once a day Active 1 tablet as needed Crestor ND 08514237570 10 MG Orally Once a day Active 1 tablet Vitamin D (Ergocalciferol) ND 84848233044 86415 UNIT Orally once a week October 22, 2017 Active 1 capsule Escitalopram Oxalate [facility] 96733946551 10 MG Orally Once a day Active 1 tablet Vital Signs Date/Time: Apr 25, 2017 BMI 30.85 Index Weight 158 lbs Height 60 in Temperature 96.9 F Cardiac Monitoring Heart Rate 68 /min Blood Pressure Diastolic 60 mm Hg Blood Pressure Systolic 108 mm Hg Results No Known Results Summary Purpose eClinicalWorks Submission
--- OUTSIDE RECORDS SUMMARY | 2018-08-12 10:17 | XMS REPORT ---
Author Author Loco Landeros [facility] eClinicalWorks Address Unknown Phone Unavailable Care Team Providers Care Snow Shoveler Name Role Phone Loco Landeros CP Unavailable Allergies, Adverse Reactions, Alerts Substance [...] Start Date End Date Status Dosage Lorazepam [facility] [address]-06 1 MG Orally once a day Active 1 tablet [place] [address]-65 10 MG Orally Once a day Active 1 tablet Tizanidine HCl ND 95171559423 4 MG Orally bid Active 1 [place] [address]-80 500 MG Orally Twice a day Active 1 tablet with meals Crestor [facility] [address]-18 10 MG Orally Once a day Active 1 tablet PredniSONE ND 24714025010 5mg once a day prn Active TAKE 2 TABLETS BY MOUTH [place] [address]-25 50 MG Orally Once a day Active 1 tablet at bedtime as needed Hydrocodone-Acetaminophen [facility] [address]-92 10-325 MG Orally every 6 hrs Active 1 tablet [place] [address]-91 40 MG Orally Before each meal and then before bed Active 1 tablet Vital Signs Date/Time: Dec 21, 2016 BMI 30.13 Index Weight 159.5 lbs Height 61 in Temperature 98.6 F Cardiac Monitoring Heart Rate 98 /min Blood Pressure Diastolic 80 mm Hg Blood Pressure Systolic 122 mm Hg Results No Known Results Summary Purpose eClinicalWorks Submission
--- OUTSIDE RECORDS SUMMARY | 2018-08-12 10:18 | XMS REPORT ---
Author Author Loco Landeros Organization eClinicalWorks Address Unknown Phone Unavailable Care Team Providers Care Title Examiner Name Role Phone Loco Landeros CP Unavailable [...]
--- OUTSIDE RECORDS SUMMARY | 2018-08-12 10:18 | XMS REPORT ---
Author Author Kimmy Dubois [facility] eClinicalWorks Address Unknown Phone Unavailable Care Team Providers Care Stick Welder Name Role Phone Kimmy Dubois CP Unavailable Allergies, Adverse Reactions, Alerts Substance Reaction Event Type N.K.D.A. Info Not Available Non Drug Allergy Problems Problem Type Condition Code Onset Dates Condition Status Assessment Polymyalgia rheumatica M35.3 Active Problem Polymyalgia rheumatica M35.3 Active Problem Other specified arthritis, multiple sites M13.89 Active Assessment Age related osteoporosis M81.0 Active Assessment Other jail (current) drug therapy Z79.899 Active Problem Age related osteoporosis M81.0 Active Problem Age-related osteoporosis with current pathological fracture, initial encounter M80.00XA Active Problem Vitamin D deficiency E55.9 Active Problem Fall from chair, initial encounter W07.XXXA Active Problem Osteoarthritis M19.90 Active Problem Chronic prescription opiate use Z79.891 Active Problem Special screening for osteoporosis Z13.820 Active Medications Medication Code System Code Instructions Start Date End Date Status Dosage Crestor [facility] 99466712954 10 MG Orally Once a day Active 1 tablet Lyrica ND 23236793149 75 MG Orally Once a day Active 1 capsule Metformin HCl ND 79812824848 500 MG Orally Twice a day Active 1 tablet with meals Pantoprazole Sodium ND 24832087368 40 MG Orally Before each meal and then before bed Active 1 tablet Lorazepam ND 03914400748 1 MG Orally once a day Active 1 tablet as needed PredniSONE ND 35745403137 5 MG Orally Once a day Active 1 tablet as needed Prolia [facility] 88910736050 60 MG/ML Subcutaneous every 6 months Active as directed Vitamin D (Ergocalciferol) [facility] 86555420351 08674 UNIT Orally once a week Active 1 capsule Hydrocodone-Acetaminophen ND 15879802011 10-325 MG Orally every 6 hrs Active 1 tablet as needed Bentyl ND 54926874423 10 MG Orally Four times a day Active 2 capsules Escitalopram Oxalate ND 72918402607 10 MG Orally Once a day Active 1 tablet Tizanidine HCl [facility] 08228175476 4 MG Orally bid Active 1 tablet as needed Trazodone HCl [facility] 94477668977 50 MG Orally Once a day Active 1 tablet at bedtime as needed Vital Signs Date/Time: Jan 22, 2018 BMI 30.98 Index Weight 164 lbs Height 61 in Temperature 98.4 F Cardiac Monitoring Heart Rate 84 /min Blood Pressure Diastolic 80 mm Hg Blood Pressure Systolic 126 mm Hg Results Name Result Date Reference Range Unit Abnormality Flag 1055 SEDIMENTATION RATE ----SEDIMENTATION RATE 14 20180122 0-20 MM/HOUR 1000 CBC W/AUTO DIFF ----PLATELET COUNT 307 67390096 130-400 K/UL ----MCV 71.7 66333504 80.0-100.0 fL L ----HEMATOCRIT 32.4 01365400 34.0-45.0 % L ----BASOPHILS 0.6 62117344 0.0-2.0 % ----MCHC 30.9 70378704 32.0-35.5 G/DL L ----EOSINOPHILS 1.6 57996225 0.0-7.0 % ----MCH 22.1 97022852 27.0-34.0 PG L ----MONOCYTES 8.7 59924137 4.0-13.0 % ----WBC 14.2 95119556 4.0-11.0 K/UL H ----HEMOGLOBIN 10.0 42478089 11.5-15.5 G/DL L ----RBC 4.52 23361873 3.80-5.10 M/UL ----LYMPHOCYTES 25.4 56902681 19.0-48.0 % ----RDW 15.6 34035275 11.0-15.0 % H ----NEUTROPHILS 63.7 67601458 40.0-74.0 % 9179 COMPREHENSIVE METABOLIC PANEL ----CALC A/G RATIO 1.6 30148665 1.0-2.6 RATIO ----CALC GLOBULIN 2.9 67818029 1.9-3.7 G/DL ----ALKALINE PHOSPHATASE 45 41849658 40-142 U/L ----BILIRUBIN, TOTAL 0.5 20180122 <=1.2 MG/DL ----CHLORIDE 101 20180122 95-107 MEQ/L ----ALT 7 20180122 5-40 U/L ----POTASSIUM 3.8 20180122 3.5-5.4 MEQ/L ----AST 8 20180122 9-40 U/L L ----SODIUM 141 96931178 133-146 MEQ/L ----CALC BUN/CREAT 15 20180122 6-28 RATIO ---- eGFR NON- AMER. 55 20180122 >60 ML/MIN/1.73 L ----CALCIUM 9.4 86909785 8.5-10.5 MG/DL ----CARBON DIOXIDE 27 20180122 19-31 MEQ/L ----ALBUMIN 4.6 20180122 3.5-5.2 G/DL ----PROTEIN, TOTAL 7.5 70024366 6.1-8.3 G/DL ----GLUCOSE 105 20180122 70-99 MG/DL H ----BUN 15 20180122 8-23 MG/DL ----CREATININE 1.00 20180122 0.60-1.30 MG/DL ---- eGFR AMER. 64 20180122 >60 ML/MIN/1.73 5083 HIGH SENSITIVITY CRP ----HIGH SENSITIVITY CRP 1.2 20180122 SEE BELOW MG/L 4958 VITAMIN D, 25 OH ----VITAMIN D, 25 OH 37 20180122 SEE BELOW NG/ML Summary Purpose eClinicalWorks Submission
--- OUTSIDE RECORDS SUMMARY | 2018-08-12 10:18 | XMS REPORT ---
Author Author Kimmy Dubois [facility] eClinicalWorks Address Unknown Phone Unavailable Care Team Providers Care Reservations Sales Supervisor Name Role Phone Kimmy Dubois CP Unavailable [...] Special screening for osteoporosis Z13.820 Active Assessment Age related osteoporosis M81.0 Active Assessment Osteoarthritis M19.90 Active Assessment Chronic prescription opiate use Z79.891 Active Assessment Other specified arthritis, multiple sites M13.89 Active Assessment Polymyalgia rheumatica M35.3 Active Medications Medication Code System Code Instructions Start Date End Date Status Dosage Pantoprazole Sodium [facility] 02999253482 40 MG Orally Before each meal and then before bed Active 1 tablet PredniSONE ND 70691501286 5 MG Orally Once a day Active 1 tablet as needed Metformin HCl ND 26939597353 500 MG Orally Twice a day Active 1 tablet with meals Crestor ND 47399530101 10 MG Orally Once a day Active 1 tablet Prolia [facility] 39407108862 60 MG/ML Subcutaneous every 6 months Active as directed Temazepam ND 81620235902 15 MG Orally qhs prn for sleep Feb 22, 2018 Active 1 capsule at bedtime as needed Vitamin D (Ergocalciferol) [facility] 98190885981 61368 UNIT Active 1 CAPSULE ONCE A WEEK ORALLY 90 DAYS Hydrocodone-Acetaminophen ND 02027952679 10-325 MG Orally every 6 hrs Active 1 tablet as needed Lorazepam ND 49136779337 1 MG Orally once a day Active 1 tablet as needed Trazodone HCl ND 07711520098 50 MG Orally Once a day Active 1 tablet at bedtime as needed Tizanidine HCl [facility] 70020634126 4 MG Orally bid Active 1 tablet as needed Lyrica [facility] 54465181602 75 MG Orally Once a day Active 1 capsule Escitalopram Oxalate [facility] 41931881255 10 MG Orally Once a day Active 1 tablet Vital Signs Date/Time: Mar 27, 2018 BMI 31.24 Index Weight 160 lbs Height 60 in Temperature 97.4 F Cardiac Monitoring Heart Rate 116 /min Blood Pressure Diastolic 76 mm Hg Blood Pressure Systolic 130 mm Hg Results No Known Results Summary Purpose eClinicalWorks Submission
--- OUTSIDE RECORDS SUMMARY | 2018-08-12 10:18 | XMS REPORT ---
Author Author Loco Landeros Organization eClinicalWorks Address Unknown Phone Unavailable Care Team Providers Care Rf Technician Name Role Phone Loco Landeros CP Unavailable [...]
--- OUTSIDE RECORDS SUMMARY | 2018-08-12 10:18 | XMS REPORT ---
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 Medications Medication Code System Code Instructions Start Date End Date Status Dosage Metformin HCl ND 44092076893 500 MG Orally Twice a day Active 1 tablet with meals Escitalopram Oxalate ND 43079890622 10 MG Orally Once a day Active 1 tablet Lorazepam ND 92743061527 1 MG Orally once a day Active 1 tablet as needed Prolia ND 54190342504 60 MG/ML Subcutaneous every 6 months Active as directed Vitamin D (Ergocalciferol) ND 52655437330 54014 UNIT Orally once a week Active 1 capsule Bentyl ND 14358426341 10 MG Orally Four times a day Active 2 capsules Pantoprazole Sodium ND 58670697325 40 MG Orally Before each meal and then before bed Active 1 tablet Hydrocodone-Acetaminophen ND 71604241664 10-325 MG Orally every 6 hrs Active 1 tablet as needed Tizanidine HCl ND 87921185990 4 MG Orally bid Dec 20, 2017 Active 1 tablet as needed Crestor [facility] 53198613101 10 MG Orally Once a day Active 1 tablet PredniSONE [facility] 09274454888 5 MG Orally Once a day Active 1 tablet as needed Trazodone HCl [facility] 69692040828 50 MG Orally Once a day Active 1 tablet at bedtime as needed Lyrica [facility] 05273715021 75 MG Orally Once a day Dec 20, 2017 Active 1 capsule Vital Signs Date/Time: Dec 20, 2017 BMI 32.42 Index Weight 166 lbs Height 60 in Temperature 97.4 F Cardiac Monitoring Heart Rate 92 /min Blood Pressure Diastolic 78 mm Hg Blood Pressure Systolic 130 mm Hg Results No Known Results Summary Purpose eClinicalWorks Submission
--- OUTSIDE RECORDS SUMMARY | 2018-08-12 10:18 | XMS REPORT ---
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 Assessment Polymyalgia rheumatica M35.3 Active Medications Medication Code System Code Instructions Start Date End Date Status Dosage PredniSONE ND 73856475439 5 MG Orally Once a day Active 1 tablet as needed Lorazepam ND 85712831085 1 MG Orally once a day Active 1 tablet as needed Tizanidine HCl ND 30847829915 4 MG Orally bid Active 1 tablet as needed Crestor ND 73582850273 10 MG Orally Once a day Active 1 tablet Pantoprazole Sodium ND 65716978676 40 MG Orally Before each meal and then before bed Active 1 tablet Vitamin D (Ergocalciferol) ND 81359305364 75891 UNIT Orally once a week Active 1 capsule Temazepam ND 41337175506 15 MG Orally qhs prn for sleep Feb 22, 2018 Active 1 capsule at bedtime as needed Hydrocodone-Acetaminophen ND 45770671745 10-325 MG Orally every 6 hrs Active 1 tablet as needed Trazodone HCl ND 67080437276 50 MG Orally Once a day Active 1 tablet at bedtime as needed Escitalopram Oxalate [facility] 54538095673 10 MG Orally Once a day Active 1 tablet Metformin HCl [facility] 78072022424 500 MG Orally Twice a day Active 1 tablet with meals Lyrica [facility] 52019670662 75 MG Orally Once a day Active 1 capsule Prolia [facility] 34097241156 60 MG/ML Subcutaneous every 6 months Active as directed Vital Signs Date/Time: Feb 22, 2018 BMI 31.40 Index Weight 160.8 lbs Height 60 in Temperature 98.2 F Cardiac Monitoring Heart Rate 76 /min Blood Pressure Diastolic 80 mm Hg Blood Pressure Systolic 118 mm Hg Results No Known Results Summary Purpose eClinicalWorks Submission
--- OUTSIDE RECORDS SUMMARY | 2018-08-12 10:18 | XMS REPORT ---
Author Author Loco Landeros Organization eClinicalWorks Address Unknown Phone Unavailable Care Team Providers Care Tire Design Engineer Name Role Phone Loco Landeros CP Unavailable [...] Date End Date Status Dosage Tizanidine HCl [facility] 05142045669 4 MG Orally bid Jul 01, 2018 September 30, 2018 Active 1 tablet as needed Results No Known Results Summary Purpose eClinicalWorks Submission
--- OUTSIDE RECORDS SUMMARY | 2018-08-12 10:18 | XMS REPORT ---
Author Author Kimmy Dubois [facility] eClinicalWorks Address Unknown Phone Unavailable Care Team Providers Care Physician Surgeon Name Role Phone Kimmy Dubois CP Unavailable [...] Assessment Vitamin D deficiency E55.9 Active Assessment Age-related osteoporosis with current pathological fracture, initial encounter M80.00XA Active Assessment Chronic prescription opiate use Z79.891 Active Medications Medication Code System Code Instructions Start Date End Date Status Dosage PredniSONE [facility] 10283998220 5 MG Orally Once a day Dec 23, 2017 Active 1 tablet as needed Tizanidine HCl ND 94707055351 4 MG Orally bid Dec 23, 2017 Active 1 tablet as needed Bentyl [facility] 25717302505 10 MG Orally Four times a day Active 2 capsules Escitalopram Oxalate ND 77429950761 10 MG Orally Once a day Active 1 tablet Metformin HCl ND 67681680581 500 MG Orally Twice a day Active 1 tablet with meals Crestor ND 87251635121 10 MG Orally Once a day Active 1 tablet Lorazepam ND 69813924213 1 MG Orally once a day Active 1 tablet as needed Hydrocodone-Acetaminophen ND 60567796507 10-325 MG Orally every 6 hrs Active 1 tablet as needed Pantoprazole Sodium ND 50554063660 40 MG Orally Before each meal and then before bed Active 1 tablet Prolia [facility] 81413887646 60 MG/ML Subcutaneous every 6 months Active as directed Trazodone HCl [facility] 18228434964 50 MG Orally Once a day Active 1 tablet at bedtime as needed Vitamin D (Ergocalciferol) [facility] 98153869100 50003 UNIT Orally once a week Active 1 capsule Vital Signs Date/Time: October 22, 2017 Blood Pressure Systolic 100 mm Hg Weight 162.8 lbs Height 61 in Temperature 99.0 F Cardiac Monitoring Heart Rate 88 /min Blood Pressure Diastolic 60 mm Hg Results No Known Results Summary Purpose eClinicalWorks Submission
== END | disposition home or self-care (01) ==
LOC: RAD 05:00 → OR 08-12 10:11 → EDSTATUS 08-12 12:30
PROVIDERS: ATTEND Internal Medicine Gastroenterology
DX: D64.9 Anemia, unspecified (principal); R10.9 Unspecified abdominal pain; K21.9 Gastro-esophageal reflux disease without esophagitis; R13.10 Dysphagia, unspecified; Z53.09 Procedure and treatment not carried out because of other contraindication
CPT/HCPCS: 36415; 82728; 83540; 84155; 84165; 84466; 85025; 85610; 93005